=== PATIENT | male | born 1950 | race Caucasian/White ===

== ENCOUNTER 2020-01-31 18:48 | Inpatient (IN) | payer MEDICARE, OTHER ==
[~2020-01-31 18:48] MED LIST: Iopamidol 370 76% 100 ML VIAL ONE
--- NOTE | 2020-01-31 19:03 | CT ---
CT Brain WO Con History: Aphasia Comparison: None. Findings: Old right MCA territory infarction with cystic encephalomalacia of the right middle tempora l lobe, anterior temporal horn, portion of the parietal lobe. No acute hemorrhage. Expected dilatation of the right lateral ventricle. Old left VP & GENERAL COUNSEL territory infarction. No acute territorial infarct is appreciated. Calvarium is intact. Moderate volume fluid within the right mastoids. Mild Wallerian degeneration of the right middle cerebral peduncle. Impression: Old left VP & GENERAL COUNSEL and large right MCA infarctions. No acute hemorrhage or new acute territoria l infarct appreciated. Dr. Patel notified of findings via telephone at 6:59 PM
--- NOTE | 2020-01-31 19:24 | CT ---
CTA Angio Head W WO Con History: A fascia. Right-sided weakness Comparison: None. Findings: CT angiogram of the head and neck performed after the intravenous administration of contras t. 3-D rendering provided. Lung apices are relatively clear given the hypoinflated state. Transverse aorta is intact. Pulmonary trunk size is normal. Cerclage wires of the posterior elements cervical spine with laminectomy change. There is been interb mone fusion from C3-C7. The right vertebral artery is patent. The left vertebral artery is patent. The vertebral arteries are codominant. The right common carotid artery is patent. The right internal carotid artery is patent. The left common carotid artery is patent. The left internal carotid artery is patent. No hemodynamica lly significant stenosis per NASCET criteria. The anterior cerebral arteries are patent. Middle cerebral arteries are patent. Posterior cerebral ar teries are patent. The ramona of Matta is without stenosis, thrombosis nor aneurysm formation. The dural venous sinuses are patent. Hypoplastic left transverse sinus. Impression: 1. No hemodynamically significant stenosis of the internal carotid arteries per NASCET criteria. 2. The ramona of Matta is without stenosis, thrombosis nor aneurysm formation. Dr. Patel notified of findings via telephone at 7:19 PM
[2020-01-31 19:31] LABS: #Basophils 0.1 thou/uL (0.0-0.2); #Eosinphils 0.2 thou/uL (0.0-0.7); #Lymphocytes 5.2 thou/uL (1.20-3.40); #Monocytes 1.8 thou/uL (0.11-0.59); #Neutrophils 7.8 thou/uL (1.40-6.50); %Basophils 0.9 % (0.0-1.0); %Eosinophils 1.6 % (0.0-10.0); %Lymphocytes 34.6 % (21.0-51.0); %Monocytes 11.6 % (0.0-10.0); %Neutrophils 51.4 % (42.0-75.0); Hemoglobin 14.5 g/dL (14.0-18.0); Mean Corpuscular HGB CONC 33.6 g/dL (32.0-36.0); Mean Corpuscular Hemoglobin 32.8 pg (27.0-31.0); Mean Corpuscular Volume 97.7 fL (78.0-98.0); Mean Platelet Volume 8.3 fL (7.4-10.4); Platelet Count 236 thou/uL (130-400); RBC Distribution Width 13.8 % (11.5-14.5); Red Blood Cell (RBC) Count 4.41 mill/uL (4.70-6.10); White Blood Cell (WBC) Count 15.1 thou/uL (4.8-10.8)
[2020-01-31 19:33] LABS: PTT 27.8 sec (22.9-36.1); Prothrombin Time 15.2 sec (12.0-14.7)
[2020-01-31 19:34] LABS: INR-International Normal Ratio 1.2
[2020-01-31 19:46] LABS: ALT (SGPT) 20 U/L (8-55); AST (SGOT) 41 U/L (5-34); Albumin 3.6 g/dL (3.4-4.8); Alkaline Phosphatase 102 U/L (40-110); Anion Gap 19 mmol/L (10-20); BUN (Urea Nitrogen) 32 mg/dL (8.4-25.7); Bilirubin, Total 1.4 mg/dL (0.2-1.2); CK (CPK) 126 U/L (30-200); Calc. Creatinine Clearance 0 mL/min (70-130); Calcium 8.7 mg/dL (7.8-10.44); Carbon Dioxide 18 mmol/L (23-31); Chloride 99 mmol/L (98-107); Estimated GFR-MDRD 38; Globulin 4.1 g/dL (2.4-3.5); Glucose 183 mg/dL (83-110); Potassium 4.4 mmol/L (3.5-5.1); Protein, Total 7.7 g/dL (5.8-8.1); Sodium 132 mmol/L (136-145)
[2020-01-31] MEDS ORDERED: Aspirin 325 MG TAB ONE (21:49)
[2020-01-31 23:56] VITALS: BMI 30.6
[2020-02-01] MEDS: Sodium Chloride 0.9% 1,000 ML IV SCH ×2 (00:16→14:17)
[2020-02-01 01:46] LABS: Troponin I Less than 0.010 ng/mL (< 0.028)
--- NOTE | 2020-02-01 01:52 | HP ---
Of note, this patient has 2 charts. He has another chart under the medical record number of [id number]. The patient presented to the ER as a Alexandro Tenorio initially. HISTORY OF PRESENT ILLNESS: This is a -[id number] male patient who was brought to the emergency room, he was found to be aphasic with right-sided weakness. In the ER, his right-sided weakness improved, but remained aphasic and unable to provide me with much information. 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 He did undergo a stroke workup that was essentially negative. He was seen by Neurology and there was a suspicion for seizure since he does have past medical history of seizures, the patient was treated with lactulose and he was back to normal. PAST MEDICAL HISTORY: 1. High blood pressure. 2. High cholesterol. 3. Pancreatitis. 4. Seizure disorder. 5. BPH. PAST SURGICAL HISTORY: As per records: 1. Splenectomy. 2. Neck surgery. 3. Back surgery. 4. Left arm surgery. 5. Hernia repair. FAMILY HISTORY: Unable to obtain due to his confusion. SOCIAL HISTORY: As per records, he does not drink alcohol. Does not smoke. ALLERGIES: NO NOTE OF ANY DRUG ALLERGY. REVIEW OF SYSTEMS: Unable to obtain due to his confusion. PHYSICAL EXAMINATION: GENERAL: He is awake, but he knows the year, but he does not know that he is in the hospital. He does not appear in distress. VITAL SIGNS: His blood pressure is 123/86, pulse is 108, and saturating 100% on room air. HEENT: Head is nontraumatic and normocephalic. Pupils equal and reactive. Extraocular movements are intact. Nonicteric sclerae. Well injected conjunctivae. Oral mucosa normal. Nasal mucosa normal. NECK: Supple. No adenopathy. No murmur. Thyroid is not palpable. Trachea is midline. No supraclavicular lymphadenopathy. HEART: S1 and S2, regular. No murmur. No gallops. No friction rubs. LUNGS: Clear to auscultation bilaterally. No wheezes. No rhonchi. No crackles. ABDOMEN: Bowel sounds are positive. Abdomen is distended with shifting dullness. EXTREMITIES: No lower extremity edema. No cyanosis noted. NEUROLOGIC: He is moving all his four extremities, but his right upper extremity might be a bit weaker than the others. He does have expressive aphasia. Otherwise, his cranial nerves appear to be intact. LABORATORY DATA: Blood work shows a WBC of 15.1, hemoglobin 14.5, platelets of 236. Sodium 132, potassium 4.4, bicarb 18, BUN 32, creatinine 1.74, last creatinine in November 2018 was 0.82. A CTA of the head shows no stenosis. A brain CT without contrast shows old left WET MACHINE CUTTER and large right MCA infarction. No acute hemorrhage or new acute territorial infarct appreciated. ASSESSMENT AND PLAN: This is a -[id number] male patient who is presenting with what looks like aphasia and right-sided weakness, possibly due to stroke. We do have a limited information about his status. Before arriving to the ER, I did place a call to his , Blanquita Ashford and got her voicemail, so I left her a message to call me back. After reviewing his previous records, the patient did have confusion secondary to hepatic encephalopathy. On my examination, I do appreciate a protuberance of his abdomen and may be he has some ascites there. I do see evidence of caput medusa. Also, he appears to be dehydrated witnessed by the increase of the creatinine from his previous baseline. Also, he has metabolic acidosis. His symptomatology could be due to recurrence of his hepatic encephalopathy, also possible stroke. Neuro. We will admit him to a stroke unit and do an MRI of the brain as well as an echocardiogram. He will be on aspiration precautions. We will also check an ammonia level and based on the ammonia level, I might go ahead and do an ultrasound of the abdomen to rule out ascites, we will also practice permissive hypertension and he will be on aspirin. Renal system, electrolytes. The patient does have renal insufficiency secondary to most likely dehydration. We will hydrate him with IV fluids. Recheck his labs in the morning. For deep venous thrombosis prophylaxis, he will be on SCDs. He will be full code for now. I am awaiting his to call me back to obtain further information. Job ID: [id number]
[2020-02-01 05:11] LABS: Eosinophils 1 % (0-10); Hemoglobin 16.2 g/dL (14.0-18.0); Lymphocytes 22 % (21-51); MDiff Complete? YES; Macrocytosis SLIGHT = 6-15 cells (100X) (0-5/hpf); Mean Corpuscular HGB CONC 31.6 g/dL (32.0-36.0); Mean Corpuscular Hemoglobin 32.1 pg (27.0-31.0); Monocytes 8 % (0-10); Neutrophil 69 % (42-75); Platelet Count 168 thou/uL (130-400); Platelet Morphology Comment Appears Adequate; RBC Distribution Width 14.1 % (11.5-14.5); Red Blood Cell (RBC) Count 5.05 mill/uL (4.70-6.10); White Blood Cell (WBC) Count 12.8 thou/uL (4.8-10.8)
[2020-02-01 07:13] LABS: Albumin 3.3 g/dL (3.4-4.8)
[2020-02-01 07:14] LABS: Calcium 8.5 mg/dL (7.8-10.44); Chloride 104 mmol/L (98-107); Potassium 3.7 mmol/L (3.5-5.1); Sodium 137 mmol/L (136-145)
[2020-02-01 07:15] LABS: Glucose 104 mg/dL (80-115); Triglycerides 77 mg/dL (Less than 150)
[2020-02-01 07:16] LABS: Carbon Dioxide 24 mmol/L (23-31); Globulin 3.3 g/dL (2.4-3.5); Protein, Total 6.6 g/dL (5.8-8.1)
[2020-02-01 07:17] LABS: Bilirubin, Total 0.9 mg/dL (0.2-1.2)
[2020-02-01 07:18] LABS: Alkaline Phosphatase 115 U/L (40-110); Calc. Creatinine Clearance 89 mL/min (70-130); Estimated GFR-MDRD 69
[2020-02-01 07:19] LABS: BUN (Urea Nitrogen) 26 mg/dL (8.4-25.7)
[2020-02-01 07:20] LABS: AST (SGOT) 24 U/L (5-34); Cholesterol 221 mg/dl (< 200 Desired)
[2020-02-01 07:21] LABS: ALT (SGPT) 17 U/L (8-55); Cardiac Risk 3.6 (Less than 4.5); HDL Cholesterol 62 mg/dL (>60 Neg Risk); LDL Cholesterol, Calculated 144 mg/dL
[2020-02-01 07:58] LABS: Anion Gap 12 mmol/L (10-20)
--- NOTE | 2020-02-01 08:12 | ULT ---
LIMITED ABDOMINAL ULTRASOUND: HISTORY: Evaluate for ascites. COMPARISON: 09/23/2018. FINDINGS: This is a limited exam only performed to evaluate for potential ascites with evaluation of all 4 quad rants in the midline. There is no evidence for significant ascites demonstrated. Specific organs we re not evaluated. IMPRESSION: Limited study just to evaluate for ascites. No evidence for significant ascites demonstrated. POS: OFF
[2020-02-01] MEDS ORDERED: Aspirin 325 mg Enteric Coated Tablet PO SCH (09:00)
[2020-02-01] MEDS ORDERED: Enoxaparin Sodium 40 MG/0.4 ML SYRINGE SC SCH (09:00)
[2020-02-01] MEDS ORDERED: Magnevist 469MG/ML 20 ML VIAL ONE (10:30)
--- NOTE | 2020-02-01 10:51 | MRI ---
BRAIN MRI WITHOUT IV CONTRAST: COMPARISON: Brain CT 01/31/2020, prior brain MRI 11/21/2018. FINDINGS: There is bilateral atrophy and chronic white matter ischemic change. There is extensive old right-si ded frontal temporal encephalomalacia with some associated brain volume loss. There is also some min imal encephalomalacia in the left occipital lobe. There is evidence for acute left middle cerebral a rtery distribution infarct changes involving the posterior aspect of the left middle cerebral artery distribution with some focal mass effect as well as some patchy petechial hemorrhagic changes with so me focal mass effect. No evidence for extraaxial hemorrhage or significant intraparenchymal hematoma . IMPRESSION: Evidence for new patchy infarct changes in the region of the left posterior middle cerebral artery di stribution with some associated fairly marked petechial hemorrhagic changes and some focal mass effec t without evidence for acute extraaxial hemorrhage or intracerebral hematoma. POS: OFF
--- NOTE | 2020-02-01 11:39 | CON ---
DATE OF CONSULTATION: 02/01/2020 CONSULTING PHYSICIAN: Hospitalist Services. IMPRESSION: 1. Probable seizure with transient amnesia. 2. 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 3. Prior history of right parietal and occipital strokes. 4. High blood pressure. 5. Hyperlipidemia. PLAN: 1. MRI with contrast. 2. Neurosurgical opinion. HISTORY OF PRESENT ILLNESS: Mr. Ashford is a 69-year-old gentleman with a past history of the above-noted issues. He was in his car when he began to feel strangely. He lost a piece of time, a friend helped him out of his car sometime later. He did not have a headache, nausea, vomiting, dizziness, lateralized weakness, or numbness that he can recall. He was brought to the ER with presumed right-sided weakness and inability to speak. He does not recall any of the symptoms at this point. He has a past history of transient confusion, which was attributed to hepatic encephalopathy. He reportedly has an autoimmune hepatitis. He had an MRI of the brain done, which showed a large irregular mass in the left posteroparietal region. There is encephalomalacia in the right parietal region and some occipitally as well. His laboratory studies showed a slightly elevated white count of 15.1. Coags were normal range, and chemistry panel was unremarkable, and cholesterol ratio was 3.6. PAST MEDICAL HISTORY: As listed above. ALLERGIES: NONE REPORTED. SOCIAL HISTORY: Unremarkable. FAMILY HISTORY: Unremarkable. REVIEW OF SYSTEMS: Ten-system review of systems is otherwise negative. PHYSICAL EXAMINATION: VITAL SIGNS: Blood pressure 156/89, pulse 94, respirations 20, and temperature 97.6. HEENT: Pupils equal and reactive. Conjunctivae clear. Oropharynx clear. NECK: Supple. No lymphadenopathy. CHEST: Clear. ABDOMEN: Soft and nontender. SKIN: Clear. EXTREMITIES: No cyanosis or edema. NEUROLOGIC: He was alert and oriented. His speech is fluent and clear. There is no facial asymmetry present. He had a good knowledge management consultant strength bilaterally. There is no fix or drift. Sensation was subjectively decreased to light touch in the right lower face and right arm. He could walk independently, no abnormal movements were seen. SUMMARY: A 69-year-old man who presents with a left posteroparietal mass and a probable seizure. I would need contrast imaging and probably neurosurgical opinion to weigh in on a biopsy. Job ID: [id number]
--- NOTE | 2020-02-01 11:57 | PDOC.HOSPP ---
- Subjective Encounter Date: 02/01/20 Encounter Time: 09:40 Subjective: Patient is alert oriented x3 now. He says that he takes bunch of medicine but he does not remember anything. Admitted with hepatic encephalopathy abdominal ultrasound does not show significant ascites. I do not see any home medications starting him on Lasix and spironolactone as well as lactulose. White count is trending down. He has no significant weakness in his extremities which I have examined. Patient lives alone. Does not drink alcohol. - Objective Vital Signs & Weight: Vital Signs (12 hours) Temp Pulse Resp BP Pulse Ox 02/01/20 11:26 98.5 F 89 20 160/92 H 94 L 02/01/20 07:23 97.6 F 94 20 156/89 H 93 L 02/01/20 04:45 97.9 F 96 18 129/88 95 Weight Weight 213 lb 8 oz Result Diagrams: 02/01/20 04:45 02/01/20 06:39 Additional Labs: Accuchecks 01/31/20 18:58 POC Glucose 203 H Hospitalist ROS - Medication Medications: Active Medications Generic Name Dose Route Start Last Admin Trade Name Freq PRN Reason Stop Dose Admin Aspirin 325 mg 02/01/20 09:00 02/01/20 10:47 Aspirin 325 Mg Enteric Coated Tablet PO 325 mg DAILY GEETA Administration Sodium Chloride 1,000 mls @ 75 mls/hr 01/31/20 22:30 02/01/20 00:16 Normal Saline 0.9% IV 1,000 mls .[id number] GEETA Administration - Exam General Appearance: NAD, awake alert Eye: PERRL ENT: normocephalic atraumatic Neck: supple Heart: RRR Respiratory: CTAB, normal chest expansion Gastrointestinal: soft, normal bowel sounds, no palpable masses, no splenomegaly, no guarding, no rigidity Neurological: no new deficit Psychiatric: A&O x 3 Hosp A/P - Plan Right side weakness and a phasic present on admission which seems to be resolved as I do not appreciate any weakness on his right upper extremity as well as lower extremity. -Prior admission in October and November for similar come concerns and he completed a stroke work-up at that time as well. History of right parietal and occipital stroke Probable seizure with a transient amnesia prior to current admission - MR new patchy infarct in the left posterior middle cerebral artery distribution and a fairly marketed petechial hemorrhage -suggestive of left posterior parietal mass -No evidence of extra axial hemorrhage or intracerebral hematoma -Neurosurgery consult pending -He is not on any seizure medications from his last hospitalization. -Ativan PRN for seizure Hypertension --It does not appear that his home medications are updated. Will start him low- dose lisinopril and hydralazine as needed. - -Echo pending. -PT OT consult placed.
[2020-02-01] MEDS ORDERED: hydrALAZINE 20 MG/ML VIAL SLOW IVP PRN (12:03)
[2020-02-01] MEDS ORDERED: Lorazepam 2 MG/ML VIAL SLOW IVP PRN (12:04)
[2020-02-01 12:27] LABS: SARS-CoV-2 MS2 Positive; SARS-CoV-2 N Gene Negative; SARS-CoV-2 S Gene Negative; SARS-CoV-2 by NAA Not Detected (NotDetected); SARS-CoV-2 orf1ab Negative
--- NOTE | 2020-02-01 12:45 | MRI ---
BRAIN MRI WITH IV CONTRAST: HISTORY: Followup brain MRI without IV contrast dated 02/01/2020. HISTORY: History is that of infarct. Brain mass. COMPARISON: Noncontrast brain MRI, 02/01/2020, brain CT without contrast, 01/31/2020. FINDINGS: There is some minimal edematous change in the posterior left parietal lobe with some dilated vessels, evidence for luxury perfusion with associated evolving hemorrhagic infarct. No evidence for neoplas tic mass. IMPRESSION: Findings for evolving posterior left middle cerebral artery distribution infarct with associated luxu ry perfusion. POS: OFF
[2020-02-01] MEDS ORDERED: Labetalol HCl 100 MG/20 ML VIAL SLOW IVP PRN (14:32)
[2020-02-01] MEDS ORDERED: cloNIDine 0.1 MG TAB PO PRN (17:02)
--- NOTE | 2020-02-01 18:10 | CON ---
DATE OF CONSULTATION: 02/01/2020 HISTORY OF PRESENT ILLNESS: The patient is a 69-year-old male, who presented to the emergency department from [place] for sudden onset of right-sided weakness and aphasia. On arrival, he was evaluated with a noncontrast CT head as well as a CTA. CT head was notable for an old left FORESTRY SUPPORT SPECIALIST infarct as well as a large right MCA old infarct. There was no acute hemorrhage seen. CTA was also performed which was negative for vascular malformation. The patient was admitted to the Medicine Service for stroke workup as well as possible underlying seizure event. Neurology was consulted, who also visit with the patient. MRI was performed without contrast and Neurology was concerned for possible left parietal mass. Further MRI was done with contrast studies. This appears more consistent with a left MCA infarct with some hemorrhagic conversion. Neurosurgery was consulted for additional management. The patient had received aspirin and is currently on 81 mg daily. I visited with the patient at the bedside. He is currently awake and alert, able to tell me his name and his location. He is not oriented to time. He is moving all 4s without difficulty, but is notable to have some subtle weakness in the right hand. He has some intermittent confusion. I am not sure of his baseline status or possible underlying dementia. PAST MEDICAL HISTORY: Hypertension, hyperlipidemia, pancreatitis, seizure disorder, BPH. PAST SURGICAL HISTORY: Splenectomy, cervical surgery, back surgery, left arm surgery, hernia repair. FAMILY HISTORY: Noncontributory. SOCIAL HISTORY: Lives at [place]. He does not smoke, drink, or use of any drugs. ALLERGIES: HE HAS NO KNOWN DRUG ALLERGIES. REVIEW OF SYSTEMS: Limited due to patient's confusion. PHYSICAL EXAMINATION: VITAL SIGNS: Stable. Blood pressure is currently 160/92. HEENT: Head, normocephalic and atraumatic. Eyes, PERRLA. Extraocular movements intact. ENT: [place], intact, moist. CARDIAC: Regular rate and rhythm. PULMONARY: Symmetric chest expansion. No evidence of dyspnea. MUSCULOSKELETAL: He has free active range of motion in all extremities. He has some subtle weakness in the right offset press operator. NEURO: A and O x4. Subtle weakness in the right upper extremity particularly in the offset press operator. ASSESSMENT AND PLAN: This is a 69-year-old male, who recently had an event of acute right-sided weakness and a seizure, which is improved significantly since onset. He appears to have suffered a left MCA infarct with some hemorrhagic conversion. I have stopped his aspirin and we will plan to repeat a noncontrast CT head in the morning. I have discussed the case with Dr. Kendall, who is in agreement. We will follow along closely. Job ID: [id number]
[2020-02-01] MEDS: Atorvastatin Calcium 20 MG TAB PO SCH (20:42)
--- NOTE | 2020-02-02 07:05 | CT ---
PRELIMINARY REPORT/[facility]/EMERGENCY AFTER HOURS PROCEDURE: Addendum: The comparison was made with prior examination 02/01/2020.Addendum electronically signed by Gomez Castellanos MD on February 02, 2020 4:22:51 AM CDT This report was discussed with Alexandro Serrano RN by Yessica Tinoco on Feb 02, 2020 04:16:00 CDT.Ad dendum electronically signed by Yessica Tinoco on February 02, 2020 4:18:58 AM CDT EXAM: CT Head Without Intravenous Contrast. CLINICAL HISTORY: F/u left MCA infarct with hem conversion TECHNIQUE: Axial computed tomography images of the head/brain without intravenous contrast. COMPARISON: None provided. FINDINGS: BRAIN: There is an acute intraparenchymal hematoma in the left parietal lobe measuring about 2.7 x 2. 8 x 3.5 cm with vasogenic edema, new since the last examination. There is an old infarct in the right episcopal and the frontal lobe. There is a mild midline shift to the right side for about 4 mm, new since the last examination. VENTRICLES: There is a mild effacement of the left lateral ventricle, new since the last examination. ORBITS: The orbits are unremarkable. SINUSES AND MASTOIDS: The paranasal sinuses and mastoid air cells are clear. SOFT TISSUES: No significant facial or scalp soft tissue swelling evident. No radiopaque foreign body is seen. BONES: No acute skull fracture. IMPRESSION: 1. There is an acute intraparenchymal hematoma in the left parietal lobe measuring about 2.7 x 2.8 x 3.5 cm with vasogenic edema, new since the last examination. 2. There is an old infarct in the right episcopal and the frontal lobe. 3. There is a mild effacement of the left lateral ventricle, new since the last examination. 4. There is a mild midline shift to the right side for about 4 mm, new since the last examination. ELECTRONICALLY SIGNED BY: Gomez Castellanos MD Feb 02, 2020 4:07:16 AM CDT FINAL REPORT HEAD CT WITHOUT CONTRAST: HISTORY: Left MCA infarct with hemorrhagic conversion. Follow-up scan. COMPARISON: 01/31/2020. FINDINGS: Hemorrhage: 2.7 x 2.5 cm hemorrhage centered in the left parietal lobe. Brain parenchyma: Loss of bass-white matter differentiation the left MCA distribution.Previous enceph alomalacia and gliosis involving the right MCA distribution. Chronic small vessel ischemic changes. There is mild right to left subfalcine herniation. Ventricular system: Possible intraventricular hemorrhage in the temporal horn of the left ventricle. Calvarium: Intact. Sinuses and mastoid air cells: Adequate aeration. IMPRESSION: 1. This report is in agreement with initial report by [facility]. 2. Acute intraparenchymal hemorrhage involving the left parietal lobe with associated vasogenic edema . Transcribed Date/Time: 02/02/2020 7:45 AM
--- NOTE | 2020-02-02 07:53 | PRG ---
DATE OF SERVICE: 02/02/2020 The patient is a 69-year-old male with history of prior right-sided infarcts, who was admitted with a seizure. His imaging had ultimately suggested a left parietal infarction with hemorrhagic conversion. He was on aspirin and Lovenox. This morning, the patient had some notable deterioration in his exam. CT scan reveals some progression of hemorrhagic conversion. IMPRESSION AND PLAN: Left parietal stroke with hemorrhagic conversion. The etiology is unclear and we will defer to Neurology regarding ongoing stroke workup. I do note that his CTA was negative. No plans for neurosurgical intervention at this time. His deficit relates to the location of the infarct and hemorrhage and some surrounding edema. I expect his recovery will be protracted. No specific neurosurgical recommendations at this time. Job ID: [id number]
[2020-02-02] MEDS ORDERED: Spironolactone 25 MG TAB PO SCH (08:00)
[2020-02-02] MEDS ORDERED: Furosemide 20 MG TAB PO SCH (09:00)
[2020-02-02] MEDS ORDERED: Aspirin 81 mg Enteric Coated Tablet PO SCH (09:00)
[2020-02-02] MEDS: Lisinopril 20 MG TAB PO SCH ×2 (10:58→11:02)
--- NOTE | 2020-02-02 12:02 | PDOC.HOSPP ---
- Subjective Encounter Date: 02/02/20 Encounter Time: 08:20 Subjective: Patient is getting electroencephalogram. Quite fatigued and somnolent. Mentation is not good today. It was better yesterday. He has vasogenic edema on the repeat CT head today with acute intraparenchymal hemorrhage involving the left parietal lobe. No neurosurgical intervention. I am starting him on Decadron for vasogenic edema. - Objective Vital Signs & Weight: Vital Signs (12 hours) Temp Pulse Resp BP BP Pulse Ox 02/02/20 11:02 129/66 02/02/20 07:29 98.3 F 94 18 129/66 94 L 02/02/20 04:07 101 F H 93 22 H 130/63 98 Weight Weight 213 lb 8 oz Result Diagrams: 02/01/20 04:45 02/01/20 06:39 Hospitalist ROS - Medication Medications: Active Medications Generic Name Dose Route Start Last Admin Trade Name Freq PRN Reason Stop Dose Admin Atorvastatin Calcium 20 mg 02/01/20 21:00 02/01/20 20:42 Atorvastatin Calcium 20 Mg Tab PO 20 mg HS GEETA Administration Clonidine 0.1 mg 02/01/20 17:02 02/01/20 17:14 Clonidine 0.1 Mg Tab PO 0.1 mg Q8H PRN Administration SBP >150 Lactulose 10 gm 02/02/20 09:00 02/02/20 10:59 Lactulose 20 Gm/30 Ml Udcup PO 10 gm DAILY GEETA Administration Lisinopril 20 mg 02/02/20 09:00 02/02/20 11:02 Lisinopril 20 Mg Tab PO Not Given DAILY GEETA Sodium Chloride 10 ml 01/31/20 22:30 02/01/20 20:42 Flush - Normal Saline 10 Ml Syringe IVF 10 ml PRN PRN Administration Saline Flush - Exam General Appearance: NAD, awake alert, ill appearing Eye: PERRL Neck: supple Heart: RRR Respiratory: CTAB, normal chest expansion Gastrointestinal: soft, no bruit Musculoskeletal: generalized weakness Psychiatric: not oriented, somnolent, lethargic Hosp A/P - Plan Right side weakness and a phasic present on admission which seems to be resolved as I do not appreciate any weakness on his right upper extremity as well as lower extremity. -Prior admission in October and November for similar come concerns and he completed a stroke work-up at that time as well. History of right parietal and occipital stroke Probable seizure with a transient amnesia prior to current admission - MR new patchy infarct in the left posterior middle cerebral artery distribution and a fairly marketed petechial hemorrhage -suggestive of left posterior parietal mass -No evidence of extra axial hemorrhage or intracerebral hematoma -Neurosurgery consult pending -He is not on any seizure medications from his last hospitalization. -Ativan PRN for seizure Hypertension --It does not appear that his home medications are updated. Will start him low- dose lisinopril and hydralazine as needed. - -Echo ---------------> EF of 55%. Diastolic dysfunction. Moderately dilated left atrium. Mild tricuspid regurgitation. -PT OT consult placed. 21st Intraparenchymal hemorrhage Vasogenic edema He has vasogenic edema on the repeat CT head today with acute intraparenchymal hemorrhage involving the left parietal lobe. No neurosurgical intervention. I am starting him on Decadron for vasogenic edema. --Blood pressure control to keep the systolic below 140. -He is on lisinopril. However with his mentation he may not be able to take that. I will schedule IV blood pressure medication. DC the p.o. for now once mentation is improved then will start him back on p.o. blood pressure medication. -Aloe up with electroencephalogram report. DC Lovenox for DVT prophylaxis and aspirin. He has he is clinical progression and improvement is not immediately favorable and she is full code will consult to the palliative to help with family interactions and code reevaluation.
[2020-02-02] MEDS: Dexamethasone 4 mg/ml Vial SLOW IVP SCH ×2 (12:10→17:22)
[2020-02-02] MEDS: Labetalol HCl 100 MG/20 ML VIAL SLOW IVP PRN ×2 (12:11→13:23)
[2020-02-02] MEDS: Metoprolol Tartrate 5 MG/5 ML VIAL IVP SCH ×3 (12:18→21:33)
--- NOTE | 2020-02-02 14:51 | PDOC.NEUPN ---
- Subjective Encounter Date: 02/02/20 Subjective: Patient seems to be confused and lethargic. - Objective Vital Signs & Weight: Vital Signs (12 hours) Temp Pulse Pulse Resp BP BP BP 02/02/20 13:23 73 157/91 H 02/02/20 12:23 76 157/97 H 02/02/20 12:00 98.2 F 84 17 149/80 H 02/02/20 11:02 129/66 02/02/20 07:29 98.3 F 94 18 129/66 02/02/20 04:07 101 F H 93 22 H 130/63 Pulse Ox 02/02/20 13:23 02/02/20 12:23 02/02/20 12:00 95 02/02/20 11:02 02/02/20 07:29 94 L 02/02/20 04:07 98 Weight Admit Weight 213 lb 8 oz Weight 213 lb 8 oz Result Diagrams: 02/01/20 04:45 02/01/20 06:39 Radiology Reviewed by me: Yes EKG Reviewed by me: Yes ROS - Review of Systems ROS unobtainable: due to mental status - Medication Medications: Active Medications Generic Name Dose Route Start Last Admin Trade Name Freq PRN Reason Stop Dose Admin Atorvastatin Calcium 20 mg 02/01/20 21:00 02/01/20 20:42 Atorvastatin Calcium 20 Mg Tab PO 20 mg HS GEETA Administration Clonidine 0.1 mg 02/01/20 17:02 02/01/20 17:14 Clonidine 0.1 Mg Tab PO 0.1 mg Q8H PRN Administration SBP >150 Dexamethasone 4 mg 02/02/20 12:00 02/02/20 12:10 Dexamethasone 4 Mg/Ml Vial SLOW IVP 4 mg Q6HR GEETA Administration Labetalol HCl 10 mg 02/01/20 17:01 02/02/20 13:23 Labetalol Hcl 100 Mg/20 Ml Vial SLOW IVP 10 mg Q4H PRN Administration SBP > 140 Metoprolol Tartrate 5 mg 02/02/20 12:00 02/02/20 12:18 Metoprolol Tartrate 5 Mg/5 Ml Vial IVP 5 mg Q6HR GEETA Administration Sodium Chloride 10 ml 01/31/20 22:30 02/01/20 20:42 Flush - Normal Saline 10 Ml Syringe IVF 10 ml PRN PRN Administration Saline Flush - Exam General Appearance: ill appearing Eye: PERRL ENT: normocephalic atraumatic Neck: supple Respiratory: CTAB Cardiovascular: RRR Gastrointestinal: soft Extremities: no cyanosis Skin: normal turgor Neurological: no new deficit PSYCH: not oriented, lethargic Results - Labs Result Diagrams: 02/01/20 04:45 02/01/20 06:39 Lab results: WBC 12.8 thou/uL (4.8-10.8) H 02/01/20 04:45 Hgb 16.2 g/dL (14.0-18.0) 02/01/20 04:45 Hct 51.2 % (42.0-52.0) 02/01/20 04:45 MCV 101.0 fL (78.0-98.0) H 02/01/20 04:45 Plt Count 168 thou/uL (130-400) 02/01/20 04:45 Neutrophils % 51.4 % (42.0-75.0) 01/31/20 19:00 Sodium 137 mmol/L (136-145) 02/01/20 06:39 Potassium 3.7 mmol/L (3.5-5.1) 02/01/20 06:39 Chloride 104 mmol/L (98-107) 02/01/20 06:39 Carbon Dioxide 24 mmol/L (23-31) 02/01/20 06:39 BUN 26 mg/dL (8.4-25.7) H 02/01/20 06:39 Creatinine 1.06 mg/dL (0.7-1.3) 02/01/20 06:39 Glucose 104 mg/dL (80-115) 02/01/20 06:39 Calcium 8.5 mg/dL (7.8-10.44) 02/01/20 06:39 Total Bilirubin 0.9 mg/dL (0.2-1.2) 02/01/20 06:39 AST 24 U/L (5-34) 02/01/20 06:39 ALT 17 U/L (8-55) 02/01/20 06:39 Alkaline Phosphatase 115 U/L (40-110) H 02/01/20 06:39 Ammonia 60 umol/L (18-72) 01/31/20 22:55 Creatine Kinase 126 U/L (30-200) 01/31/20 19:00 Troponin I Less than 0.010 ng/mL (< 0.028) 02/01/20 01:09 Serum Total Protein 6.6 g/dL (5.8-8.1) 02/01/20 06:39 Albumin 3.3 g/dL (3.4-4.8) L 02/01/20 06:39 - Radiology Interpretation MRI - head Additional Comment: MRI Brain new patchy infarct in the left posterior middle cerebral artery distribution with hemorrhage PN A/P (1) CVA (cerebral vascular accident) Code(s): I63.9 - CEREBRAL INFARCTION, UNSPECIFIED Status: Acute (2) Cerebral hemorrhage Code(s): I61.9 - NONTRAUMATIC INTRACEREBRAL HEMORRHAGE, UNSPECIFIED Status: Acute - Plan Daily Plan: PT/OT, speech therapy, DVT proph w/SCDs Mr Ashford has history of right parietal and occipital stroke presented with possible seizure like activity. EEG reviewed which was negative for seizure activity. MRI brain reviewed which showed patchy infarct in the left posterior middle cerebral artery distribution and a fairly IP hemorrhage with vasogenic edema. No intervention per NSGY. Continue decadron. Neurochecks every 2 hours. Start Keppra 500 mg bid for seizure prophylaxis. 2D echo showed LVEF of 55%. Diastolic dysfunction. . Strict control of BP Telemetry Continue home medications Continue medical management per primary team PT/OT/Speech Case discussed during MDR rounds
[2020-02-02] MEDS ORDERED: cloNIDine 0.2mg/24 Hour PATCH TD SCH (16:00)
[2020-02-02] MEDS: Lorazepam 2 MG/ML VIAL SLOW IVP PRN (18:10)
[2020-02-02] MEDS: Atorvastatin Calcium 20 MG TAB PO SCH (21:32)
[2020-02-03] MEDS: Dexamethasone 4 mg/ml Vial SLOW IVP SCH ×4 (00:34→18:07)
[2020-02-03] MEDS: Metoprolol Tartrate 5 MG/5 ML VIAL IVP SCH ×6 (00:35→21:46)
[2020-02-03] MEDS: Lorazepam 2 MG/ML VIAL SLOW IVP PRN ×3 (08:58→23:42)
--- NOTE | 2020-02-03 08:58 | EEG ---
DATE OF SERVICE: 02/02/2020 ATTENDING PHYSICIAN: Ivon Saeed MD This EEG was performed using 24-channel [employer] video digital EEG machine with 24-disk electrodes. This was an extended 2 hours 6 minutes of inpatient video EEG recording. Digital analysis of the EEG was done for spike and seizure detection which revealed no abnormalities. BACKGROUND: Posterior background rhythm was not observed. HYPERVENTILATION: Not performed. PHOTIC STIMULATION: Not performed. SLEEP: No stage change was observed. EEG DIAGNOSES: 1. Generalized irregular delta-theta activity seen throughout the recording. 2. Absence of posterior background rhythm. CLINICAL INTERPRETATION: This EEG is consistent with [id number] generalized nonspecific cerebral dysfunction. Job ID: [id number]
--- NOTE | 2020-02-03 10:10 | PRG ---
DATE OF SERVICE: 02/03/2020 SUBJECTIVE: I visited with the patient on the Stroke Unit. He continues to be quite confused and aphasic from his left parietal infarct and hemorrhagic conversion. No additional overnight events. His neurologic exam is very similar to yesterday. He is very confused and significantly aphasic. He has seen spontaneously moving all fours and will attempt to get out of bed at times. There continues to be no plans for neurosurgical intervention at this time. We will defer ongoing management to Neurology and medical teams. Job ID: [id number]
--- NOTE | 2020-02-03 12:03 | PDOC.HOSPP ---
- Subjective Encounter Date: 02/03/20 Encounter Time: 09:50 Subjective: Patient is still lethargic but more aware of his surroundings. He is quite a phasic still. I consulted palliative to look at his home situations. I do not see any family members listed for contact. He is full code. His CODE STATUS has to be addressed. - Objective Vital Signs & Weight: Vital Signs (12 hours) Temp Pulse Resp BP Pulse Ox 02/03/20 07:26 98 F 76 18 136/77 93 L 02/03/20 05:45 59 L 129/71 02/03/20 05:39 68 131/76 02/03/20 05:35 74 151/81 H 02/03/20 04:20 98.6 F 74 20 152/85 H 95 02/03/20 00:40 65 127/63 02/03/20 00:39 68 141/71 H 02/03/20 00:30 71 132/70 Weight Admit Weight 213 lb 8 oz Weight 213 lb 8 oz I&O: 02/02/20 02/03/20 02/04/20 06:59 06:59 06:59 Intake Total 540 Balance 540 Result Diagrams: 02/01/20 04:45 02/01/20 06:39 Hospitalist ROS - Medication Medications: Active Medications Generic Name Dose Route Start Last Admin Trade Name Freq PRN Reason Stop Dose Admin Atorvastatin Calcium 20 mg 02/01/20 21:00 02/02/20 21:32 Atorvastatin Calcium 20 Mg Tab PO Not Given HS GEETA Clonidine 0.1 mg 02/01/20 17:02 02/01/20 17:14 Clonidine 0.1 Mg Tab PO 0.1 mg Q8H PRN Administration SBP >150 Clonidine 0.2 mg 02/02/20 16:00 02/02/20 15:28 Clonidine 0.2mg/24 Hour Patch TD 0.2 mg Q7D GEETA Administration Dexamethasone 4 mg 02/02/20 12:00 02/03/20 05:36 Dexamethasone 4 Mg/Ml Vial SLOW IVP 4 mg Q6HR GEETA Administration Labetalol HCl 10 mg 02/01/20 17:01 02/02/20 13:23 Labetalol Hcl 100 Mg/20 Ml Vial SLOW IVP 10 mg Q4H PRN Administration SBP > 140 Lorazepam 1 mg 02/02/20 17:42 02/03/20 08:58 Lorazepam 2 Mg/Ml Vial SLOW IVP 1 mg Q6H PRN Administration .AGITATION Metoprolol Tartrate 5 mg 02/02/20 21:00 02/03/20 08:48 Metoprolol Tartrate 5 Mg/5 Ml Vial IVP 5 mg Q4HR GEETA Administration Sodium Chloride 10 ml 01/31/20 22:30 02/01/20 20:42 Flush - Normal Saline 10 Ml Syringe IVF 10 ml PRN PRN Administration Saline Flush - Exam General Appearance: ill appearing General - other findings: Expressive aphasia Eye: PERRL ENT: normocephalic atraumatic Neck: supple Heart: RRR Respiratory: CTAB, normal chest expansion Gastrointestinal: soft, normal bowel sounds Neurological: no new deficit, speech deficit Psychiatric: oriented to person Hosp A/P - Plan Right side weakness and a phasic present on admission which seems to be resolved as I do not appreciate any weakness on his right upper extremity as well as lower extremity. -Prior admission in October and November for similar come concerns and he completed a stroke work-up at that time as well. History of right parietal and occipital stroke Probable seizure with a transient amnesia prior to current admission - MR new patchy infarct in the left posterior middle cerebral artery distribution and a fairly marketed petechial hemorrhage -suggestive of left posterior parietal mass -No evidence of extra axial hemorrhage or intracerebral hematoma -Neurosurgery consult pending -He is not on any seizure medications from his last hospitalization. -Ativan PRN for seizure Hypertension --It does not appear that his home medications are updated. Will start him low- dose lisinopril and hydralazine as needed. - -Echo ---------------> EF of 55%. Diastolic dysfunction. Moderately dilated left atrium. Mild tricuspid regurgitation. -PT OT consult placed. Intraparenchymal hemorrhage Vasogenic edema He has vasogenic edema on the repeat CT head today with acute intraparenchymal hemorrhage involving the left parietal lobe. No neurosurgical intervention. I am starting him on Decadron for vasogenic edema. --Blood pressure control to keep the systolic below 140. -He is on lisinopril. However with his mentation he may not be able to take that. I will schedule IV blood pressure medication. DC the p.o. for now once mentation is improved then will start him back on p.o. blood pressure medication. -Aloe up with electroencephalogram report. DC Lovenox for DVT prophylaxis and aspirin. He has he is clinical progression and improvement is not immediately favorable and she is full code will consult to the palliative to help with family interactions and code reevaluation. 22nd -We will repeat the CT head in 1 week or earlier if any changes in his neurological status. -Have to really assess the vasogenic edema as he is on Decadron currently. -Electroencephalogram shows moderate to severe generalized nonspecific cerebral dysfunction. -PT OT on board. -We will see next 1 to 2 days if there is any neurological improvement. -He would be a candidate for rehab versus [facility] facility placement at this point.
--- NOTE | 2020-02-03 13:04 | PDOC.NEUPN ---
- Subjective Encounter Date: 02/03/20 Subjective: Patient continues to be aphasic and agitated this morning. EEG negative for seizure activity. - Objective Vital Signs & Weight: Vital Signs (12 hours) Temp Pulse Resp BP Pulse Ox 02/03/20 12:00 98.2 F 74 20 142/81 H 92 L 02/03/20 07:26 98 F 76 18 136/77 93 L 02/03/20 05:45 59 L 129/71 02/03/20 05:39 68 131/76 02/03/20 05:35 74 151/81 H 02/03/20 04:20 98.6 F 74 20 152/85 H 95 Weight Admit Weight 213 lb 8 oz Weight 213 lb 8 oz I&O: 02/02/20 02/03/20 02/04/20 06:59 06:59 06:59 Intake Total 540 Balance 540 Result Diagrams: 02/01/20 04:45 02/01/20 06:39 Radiology Reviewed by me: Yes EKG Reviewed by me: Yes ROS - Review of Systems ROS unobtainable: due to mental status (aphasic) - Medication Medications: Active Medications Generic Name Dose Route Start Last Admin Trade Name Freq PRN Reason Stop Dose Admin Atorvastatin Calcium 20 mg 02/01/20 21:00 02/02/20 21:32 Atorvastatin Calcium 20 Mg Tab PO Not Given HS GEETA Clonidine 0.1 mg 02/01/20 17:02 02/01/20 17:14 Clonidine 0.1 Mg Tab PO 0.1 mg Q8H PRN Administration SBP >150 Clonidine 0.2 mg 02/02/20 16:00 02/02/20 15:28 Clonidine 0.2mg/24 Hour Patch TD 0.2 mg Q7D GEETA Administration Dexamethasone 4 mg 02/02/20 12:00 02/03/20 12:17 Dexamethasone 4 Mg/Ml Vial SLOW IVP 4 mg Q6HR GEETA Administration Labetalol HCl 10 mg 02/01/20 17:01 02/02/20 13:23 Labetalol Hcl 100 Mg/20 Ml Vial SLOW IVP 10 mg Q4H PRN Administration SBP > 140 Lorazepam 1 mg 02/02/20 17:42 02/03/20 08:58 Lorazepam 2 Mg/Ml Vial SLOW IVP 1 mg Q6H PRN Administration .AGITATION Metoprolol Tartrate 5 mg 02/02/20 21:00 02/03/20 12:17 Metoprolol Tartrate 5 Mg/5 Ml Vial IVP 5 mg Q4HR GEETA Administration Sodium Chloride 10 ml 01/31/20 22:30 02/01/20 20:42 Flush - Normal Saline 10 Ml Syringe IVF 10 ml PRN PRN Administration Saline Flush - Exam General Appearance: awake alert Eye: PERRL ENT: normocephalic atraumatic Neck: supple Respiratory: CTAB Cardiovascular: RRR Gastrointestinal: soft Extremities: no cyanosis Skin: normal turgor Neurological: no new deficit, speech deficit Musculoskeletal: no muscle wasting PSYCH: not oriented (aphasic) Results - Labs Result Diagrams: 02/01/20 04:45 02/01/20 06:39 Lab results: WBC 12.8 thou/uL (4.8-10.8) H 02/01/20 04:45 Hgb 16.2 g/dL (14.0-18.0) 02/01/20 04:45 Hct 51.2 % (42.0-52.0) 02/01/20 04:45 MCV 101.0 fL (78.0-98.0) H 02/01/20 04:45 Plt Count 168 thou/uL (130-400) 02/01/20 04:45 Neutrophils % 51.4 % (42.0-75.0) 01/31/20 19:00 Sodium 137 mmol/L (136-145) 02/01/20 06:39 Potassium 3.7 mmol/L (3.5-5.1) 02/01/20 06:39 Chloride 104 mmol/L (98-107) 02/01/20 06:39 Carbon Dioxide 24 mmol/L (23-31) 02/01/20 06:39 BUN 26 mg/dL (8.4-25.7) H 02/01/20 06:39 Creatinine 1.06 mg/dL (0.7-1.3) 02/01/20 06:39 Glucose 104 mg/dL (80-115) 02/01/20 06:39 Calcium 8.5 mg/dL (7.8-10.44) 02/01/20 06:39 Total Bilirubin 0.9 mg/dL (0.2-1.2) 02/01/20 06:39 AST 24 U/L (5-34) 02/01/20 06:39 ALT 17 U/L (8-55) 02/01/20 06:39 Alkaline Phosphatase 115 U/L (40-110) H 02/01/20 06:39 Ammonia 60 umol/L (18-72) 01/31/20 22:55 Creatine Kinase 126 U/L (30-200) 01/31/20 19:00 Troponin I Less than 0.010 ng/mL (< 0.028) 02/01/20 01:09 Serum Total Protein 6.6 g/dL (5.8-8.1) 02/01/20 06:39 Albumin 3.3 g/dL (3.4-4.8) L 02/01/20 06:39 PN A/P (1) CVA (cerebral vascular accident) Code(s): I63.9 - CEREBRAL INFARCTION, UNSPECIFIED Status: Acute (2) Cerebral hemorrhage Code(s): I61.9 - NONTRAUMATIC INTRACEREBRAL HEMORRHAGE, UNSPECIFIED Status: Acute - Plan Daily Plan: PT/OT, speech therapy, DVT proph w/SCDs Mr Ashford has history of right parietal and occipital stroke presented with possible seizure like activity. EEG reviewed which was negative for seizure activity. MRI brain reviewed which showed patchy infarct in the left posterior middle cerebral artery distribution and a fairly IP hemorrhage with vasogenic edema. No intervention per NSGY. Continue decadron. Neurochecks every 2 hours. Continue Keppra 500 mg bid for seizure prophylaxis.- ordered. 2D echo showed LVEF of 55%. Diastolic dysfunction. No thrombus or PFO. . Strict control of BP and GBG Telemetry Continue home medications Continue medical management per primary team PT/OT/Speech CM on board regarding discharge planning. Case discussed during MDR rounds
--- NOTE | 2020-02-03 17:06 | PDOC.FMACP ---
Advance Care Planning - Problem (1) Palliative care encounter Status: Acute Code(s): Z51.5 - ENCOUNTER FOR PALLIATIVE CARE (2) CVA (cerebral vascular accident) Status: Acute Code(s): I63.9 - CEREBRAL INFARCTION, UNSPECIFIED (3) Cerebral hemorrhage Status: Acute Code(s): I61.9 - NONTRAUMATIC INTRACEREBRAL HEMORRHAGE, UNSPECIFIED - Note Participants: surrogate decision-maker, palliative care Summary: Revisited Advanced Care Planning with Blanquita Ashford. She is determined as surrogate decision maker as she remains legally to Mr Ashford, and he has no designated MPOA. The diagnosis, prognosis and goals of care were discussed. Appropriate forms and documentation to accomplish the goals of care were discussed. All questions were answered. She confirms that in the past he had been a DNAR, elected to transition to DNAR and is requesting that two physicians sign for the OOHDNAR as she is unable to commute to the hospital and come in to sign the document herself. Communicated with Dr Swain. Time Spent (mins): 20
--- NOTE | 2020-02-03 17:21 | CT ---
"PRELIMINARY REPORT" CTA Angio Head W WO Con History: A fascia. Right-sided weakness Comparison: None. Findings: CT angiogram of the head and neck performed after the intravenous administration of contras t. 3-D rendering provided. Lung apices are relatively clear given the hypoinflated state. Transverse aorta is intact. Pulmonary trunk size is normal. Cerclage wires of the posterior elements cervical spine with laminectomy change. There is been interb mone fusion from C3-C7. The right vertebral artery is patent. The left vertebral artery is patent. The vertebral arteries are codominant. The right common carotid artery is patent. The right internal carotid artery is patent. The left common carotid artery is patent. The left internal carotid artery is patent. No hemodynamica lly significant stenosis per NASCET criteria. The anterior cerebral arteries are patent. Middle cerebral arteries are patent. Posterior cerebral ar teries are patent. The [place] is without stenosis, thrombosis nor aneurysm formation. The dural venous sinuses are patent. Hypoplastic left transverse sinus. Impression: 1. No hemodynamically significant stenosis of the internal carotid arteries per NASCET criteria. 2. The [place] is without stenosis, thrombosis nor aneurysm formation. Dr. Patel notified of findings via telephone at 7:19 PM Transcribed Date/Time: 02/03/2020 5:21 PM
[2020-02-03] MEDS: Atorvastatin Calcium 20 MG TAB PO SCH (21:48)
[2020-02-04] MEDS: Dexamethasone 4 mg/ml Vial SLOW IVP SCH ×4 (00:25→17:00)
[2020-02-04] MEDS: Metoprolol Tartrate 5 MG/5 ML VIAL IVP SCH ×6 (00:25→21:36)
--- NOTE | 2020-02-04 12:23 | PDOC.HOSPP ---
- Subjective Encounter Date: 02/04/20 Encounter Time: 09:20 Subjective: No remarkable improvement in his speech. Still severe dysarthria. Admitted to for swallow study. He has a severe aspiration risk. He continues to be n.p.o. - Objective Vital Signs & Weight: Vital Signs (12 hours) Temp Pulse Resp BP Pulse Ox 02/04/20 11:43 97.6 F 68 18 128/76 95 02/04/20 07:57 96 02/04/20 07:42 97.5 F L 72 18 130/77 96 02/04/20 04:38 96.4 F L 72 18 130/86 93 L 02/04/20 00:28 96.7 F L 86 16 157/83 H 96 Weight Admit Weight 213 lb 8 oz Weight 213 lb 8 oz I&O: 02/03/20 02/04/20 02/05/20 06:59 06:59 06:59 Intake Total 540 140 Output Total 675 Balance 540 -535 Result Diagrams: 02/01/20 04:45 02/01/20 06:39 Hospitalist ROS - Medication Medications: Active Medications Generic Name Dose Route Start Last Admin Trade Name Freq PRN Reason Stop Dose Admin Atorvastatin Calcium 20 mg 02/01/20 21:00 02/03/20 21:48 Atorvastatin Calcium 20 Mg Tab PO Not Given HS GEETA Clonidine 0.1 mg 02/01/20 17:02 02/01/20 17:14 Clonidine 0.1 Mg Tab PO 0.1 mg Q8H PRN Administration SBP >150 Clonidine 0.2 mg 02/02/20 16:00 02/02/20 15:28 Clonidine 0.2mg/24 Hour Patch TD 0.2 mg Q7D GEETA Administration Dexamethasone 4 mg 02/02/20 12:00 02/04/20 05:58 Dexamethasone 4 Mg/Ml Vial SLOW IVP 4 mg Q6HR GEETA Administration Levetiracetam 500 mg/ Device 100 mls @ 200 mls/hr 02/03/20 21:00 02/04/20 08:00 IVPB 100 mls BID GEETA Administration Labetalol HCl 10 mg 02/01/20 17:01 02/02/20 13:23 Labetalol Hcl 100 Mg/20 Ml Vial SLOW IVP 10 mg Q4H PRN Administration SBP > 140 Lorazepam 1 mg 02/02/20 17:42 02/03/20 23:42 Lorazepam 2 Mg/Ml Vial SLOW IVP 1 mg Q6H PRN Administration .AGITATION Metoprolol Tartrate 5 mg 02/02/20 21:00 02/04/20 08:02 Metoprolol Tartrate 5 Mg/5 Ml Vial IVP 5 mg Q4HR GEETA Administration Sodium Chloride 10 ml 01/31/20 22:30 02/01/20 20:42 Flush - Normal Saline 10 Ml Syringe IVF 10 ml PRN PRN Administration Saline Flush - Exam General Appearance: NAD, awake alert Eye: PERRL ENT: normocephalic atraumatic Neck: supple Heart: RRR Respiratory: CTAB Gastrointestinal: soft, normal bowel sounds Neurological: no focal deficits Psychiatric: oriented to person Hosp A/P - Plan Right side weakness and a phasic present on admission which seems to be resolved as I do not appreciate any weakness on his right upper extremity as well as lower extremity. -Prior admission in October and November for similar come concerns and he completed a stroke work-up at that time as well. History of right parietal and occipital stroke Probable seizure with a transient amnesia prior to current admission - MR new patchy infarct in the left posterior middle cerebral artery distribution and a fairly marketed petechial hemorrhage -suggestive of left posterior parietal mass -No evidence of extra axial hemorrhage or intracerebral hematoma -Neurosurgery consult pending -He is not on any seizure medications from his last hospitalization. -Ativan PRN for seizure Hypertension --It does not appear that his home medications are updated. Will start him low- dose lisinopril and hydralazine as needed. - -Echo ---------------> EF of 55%. Diastolic dysfunction. Moderately dilated left atrium. Mild tricuspid regurgitation. -PT OT consult placed. Intraparenchymal hemorrhage Vasogenic edema He has vasogenic edema on the repeat CT head today with acute intraparenchymal hemorrhage involving the left parietal lobe. No neurosurgical intervention. I am starting him on Decadron for vasogenic edema. --Blood pressure control to keep the systolic below 140. -He is on lisinopril. However with his mentation he may not be able to take that. I will schedule IV blood pressure medication. DC the p.o. for now once mentation is improved then will start him back on p.o. blood pressure medication. -Aloe up with electroencephalogram report. DC Lovenox for DVT prophylaxis and aspirin. since clinical progression and improvement is not immediately favorable and she is full code will consult to the palliative to help with family interactions and code reevaluation. -We will repeat the CT head in 1 week or earlier if any changes in his neurological status. -Have to really assess the vasogenic edema as he is on Decadron currently. -Electroencephalogram shows moderate to severe generalized nonspecific cerebral dysfunction. -PT OT on board. -We will see next 1 to 2 days if there is any neurological improvement. -He would be a candidate for rehab versus half-way facility placement at this point. dysarthria Severe dysphagia -ongoing n.p.o. palliative checked w.. , and ok w.. a diet and assoc'd risk. --soft diet w.. honey nectar thick. Upper lipidemia with LDL of 144 ---lipitor--has to be done with applesauce
--- NOTE | 2020-02-04 12:40 | PDOC.NEUPN ---
- Subjective Encounter Date: 02/04/20 Subjective: Patient continues to be aphasic and but more cam today. He does not follow commands. - Objective Vital Signs & Weight: Vital Signs (12 hours) Temp Pulse Resp BP Pulse Ox 02/04/20 11:43 97.6 F 68 18 128/76 95 02/04/20 07:57 96 02/04/20 07:42 97.5 F L 72 18 130/77 96 02/04/20 04:38 96.4 F L 72 18 130/86 93 L Weight Admit Weight 213 lb 8 oz Weight 213 lb 8 oz I&O: 02/03/20 02/04/20 02/05/20 06:59 06:59 06:59 Intake Total 540 140 Output Total 675 Balance 540 -535 Result Diagrams: 02/01/20 04:45 02/01/20 06:39 Radiology Reviewed by me: Yes EKG Reviewed by me: Yes ROS - Review of Systems ROS unobtainable: due to mental status (aphasic) - Medication Medications: Active Medications Generic Name Dose Route Start Last Admin Trade Name Freq PRN Reason Stop Dose Admin Atorvastatin Calcium 20 mg 02/01/20 21:00 02/03/20 21:48 Atorvastatin Calcium 20 Mg Tab PO Not Given HS GEETA Clonidine 0.1 mg 02/01/20 17:02 02/01/20 17:14 Clonidine 0.1 Mg Tab PO 0.1 mg Q8H PRN Administration SBP >150 Clonidine 0.2 mg 02/02/20 16:00 02/02/20 15:28 Clonidine 0.2mg/24 Hour Patch TD 0.2 mg Q7D GEETA Administration Dexamethasone 4 mg 02/02/20 12:00 02/04/20 12:09 Dexamethasone 4 Mg/Ml Vial SLOW IVP 4 mg Q6HR GEETA Administration Levetiracetam 500 mg/ Device 100 mls @ 200 mls/hr 02/03/20 21:00 02/04/20 08:00 IVPB 100 mls BID GEETA Administration Labetalol HCl 10 mg 02/01/20 17:01 02/02/20 13:23 Labetalol Hcl 100 Mg/20 Ml Vial SLOW IVP 10 mg Q4H PRN Administration SBP > 140 Lorazepam 1 mg 02/02/20 17:42 02/03/20 23:42 Lorazepam 2 Mg/Ml Vial SLOW IVP 1 mg Q6H PRN Administration .AGITATION Metoprolol Tartrate 5 mg 02/02/20 21:00 02/04/20 12:09 Metoprolol Tartrate 5 Mg/5 Ml Vial IVP 5 mg Q4HR GEETA Administration Sodium Chloride 10 ml 01/31/20 22:30 02/01/20 20:42 Flush - Normal Saline 10 Ml Syringe IVF 10 ml PRN PRN Administration Saline Flush - Exam General Appearance: awake alert Eye: PERRL ENT: normocephalic atraumatic Neck: supple Respiratory: CTAB Cardiovascular: RRR Gastrointestinal: soft Extremities: no cyanosis Skin: normal turgor Neurological: no new deficit, speech deficit Musculoskeletal: normal tone, no muscle wasting PSYCH: not oriented (aphasic) Results - Labs Result Diagrams: 02/01/20 04:45 02/01/20 06:39 Lab results: WBC 12.8 thou/uL (4.8-10.8) H 02/01/20 04:45 Hgb 16.2 g/dL (14.0-18.0) 02/01/20 04:45 Hct 51.2 % (42.0-52.0) 02/01/20 04:45 MCV 101.0 fL (78.0-98.0) H 02/01/20 04:45 Plt Count 168 thou/uL (130-400) 02/01/20 04:45 Neutrophils % 51.4 % (42.0-75.0) 01/31/20 19:00 Sodium 137 mmol/L (136-145) 02/01/20 06:39 Potassium 3.7 mmol/L (3.5-5.1) 02/01/20 06:39 Chloride 104 mmol/L (98-107) 02/01/20 06:39 Carbon Dioxide 24 mmol/L (23-31) 02/01/20 06:39 BUN 26 mg/dL (8.4-25.7) H 02/01/20 06:39 Creatinine 1.06 mg/dL (0.7-1.3) 02/01/20 06:39 Glucose 104 mg/dL (80-115) 02/01/20 06:39 Calcium 8.5 mg/dL (7.8-10.44) 02/01/20 06:39 Total Bilirubin 0.9 mg/dL (0.2-1.2) 02/01/20 06:39 AST 24 U/L (5-34) 02/01/20 06:39 ALT 17 U/L (8-55) 02/01/20 06:39 Alkaline Phosphatase 115 U/L (40-110) H 02/01/20 06:39 Ammonia 60 umol/L (18-72) 01/31/20 22:55 Creatine Kinase 126 U/L (30-200) 01/31/20 19:00 Troponin I Less than 0.010 ng/mL (< 0.028) 02/01/20 01:09 Serum Total Protein 6.6 g/dL (5.8-8.1) 02/01/20 06:39 Albumin 3.3 g/dL (3.4-4.8) L 02/01/20 06:39 PN A/P (1) CVA (cerebral vascular accident) Code(s): I63.9 - CEREBRAL INFARCTION, UNSPECIFIED Status: Acute (2) Cerebral hemorrhage Code(s): I61.9 - NONTRAUMATIC INTRACEREBRAL HEMORRHAGE, UNSPECIFIED Status: Acute - Plan Daily Plan: PT/OT, speech therapy, DVT proph w/SCDs Mr Ashford has history of right parietal and occipital stroke presented with possible seizure like activity.MRI brain consistent with acute infarction. Patient is globally aphasic. Continue speech therapy. Swallow eval for dysphagia. EEG reviewed which was negative for seizure activity. MRI brain reviewed which showed patchy infarct in the left posterior middle cerebral artery distribution and a fairly IP hemorrhage with vasogenic edema. No intervention per NSGY. Continue decadron. Neurochecks every 2 hours. Continue Keppra 500 mg bid for seizure prophylaxis.- 2D echo showed LVEF of 55%. Diastolic dysfunction. No thrombus or PFO. . Strict control of BP and GBG Continue Telemetry Continue medical management per primary team PT/OT/Speech Palliative care team on board CM on board regarding discharge planning. Case discussed during MDR rounds
[2020-02-04] MEDS: Atorvastatin Calcium 20 MG TAB PO SCH ×2 (21:32→23:43)
[2020-02-05] MEDS: Metoprolol Tartrate 5 MG/5 ML VIAL IVP SCH ×6 (00:48→22:21)
[2020-02-05] MEDS: Dexamethasone 4 mg/ml Vial SLOW IVP SCH ×4 (00:49→17:25)
[2020-02-05 05:27] LABS: #Lymphocytes 1.2 thou/uL (1.20-3.40); #Monocytes 1.1 thou/uL (0.11-0.59); #Neutrophils 16.8 thou/uL (1.40-6.50); %Eosinophils 0.1 % (0.0-10.0); %Lymphocytes 6.1 % (21.0-51.0); %Neutrophils 87.8 % (42.0-75.0); Hemoglobin 15.6 g/dL (14.0-18.0); Mean Corpuscular HGB CONC 32.1 g/dL (32.0-36.0); Mean Corpuscular Hemoglobin 31.3 pg (27.0-31.0); Mean Corpuscular Volume 97.6 fL (78.0-98.0); Mean Platelet Volume 8.5 fL (7.4-10.4); Platelet Count 283 thou/uL (130-400); Red Blood Cell (RBC) Count 4.97 mill/uL (4.70-6.10); White Blood Cell (WBC) Count 19.1 thou/uL (4.8-10.8)
[2020-02-05 05:48] LABS: Anion Gap 14 mmol/L (10-20); BUN (Urea Nitrogen) 40 mg/dL (8.4-25.7); Calc. Creatinine Clearance 97 mL/min (70-130); Carbon Dioxide 19 mmol/L (23-31); Chloride 108 mmol/L (98-107); Estimated GFR-MDRD 77; Glucose 131 mg/dL (80-115); Potassium 4.7 mmol/L (3.5-5.1); Sodium 136 mmol/L (136-145)
--- NOTE | 2020-02-05 10:40 | RAD ---
Portable frontal chest radiograph: 02/05/2020 COMPARISON: 10/22/2018 HISTORY: Elevated white blood cell count, evaluate for aspiration Findings: Heart and mediastinal contours are stable. No pneumothorax or pleural fluid. No focal conso lidation or alveolar edema. Mild increased linear density noted in the perihilar regions and left lung base, unchanged. IMPRESSION: Stable appearance of the chest. No focal consolidation or alveolar edema.
[2020-02-05] MEDS ORDERED: Senokot 8.6 MG TAB PO SCH ×2 (12:02→21:00)
[2020-02-05] MEDS ORDERED: Polyethylene Glycol 3350 17 GM Packet PO PRN (12:02)
--- NOTE | 2020-02-05 12:31 | PDOC.NEUPN ---
- Subjective Encounter Date: 02/05/20 Subjective: Patient continues to be aphasic - Objective Vital Signs & Weight: Vital Signs (12 hours) Temp Pulse Resp BP BP Pulse Ox 02/05/20 11:34 97.5 F L 55 L 16 126/68 95 02/05/20 07:48 97.5 F L 52 L 16 119/71 96 02/05/20 04:00 97.5 F L 54 L 16 120/75 95 Weight Admit Weight 213 lb 8 oz Weight 213 lb 8 oz I&O: 02/04/20 02/05/20 02/06/20 06:59 06:59 06:59 Intake Total 140 1020 Output Total 675 Balance -535 1020 Result Diagrams: 02/05/20 05:01 02/05/20 05:01 Radiology Reviewed by me: Yes EKG Reviewed by me: Yes ROS - Review of Systems ROS unobtainable: due to mental status (aphasic) - Medication Medications: Active Medications Generic Name Dose Route Start Last Admin Trade Name Freq PRN Reason Stop Dose Admin Atorvastatin Calcium 20 mg 02/04/20 21:00 02/04/20 21:32 Atorvastatin Calcium 20 Mg Tab PO 20 mg HS GEETA Administration Clonidine 0.1 mg 02/01/20 17:02 02/01/20 17:14 Clonidine 0.1 Mg Tab PO 0.1 mg Q8H PRN Administration SBP >150 Clonidine 0.2 mg 02/02/20 16:00 02/02/20 15:28 Clonidine 0.2mg/24 Hour Patch TD 0.2 mg Q7D GEETA Administration Dexamethasone 4 mg 02/02/20 12:00 02/05/20 05:43 Dexamethasone 4 Mg/Ml Vial SLOW IVP 4 mg Q6HR GEETA Administration Levetiracetam 500 mg/ Device 100 mls @ 200 mls/hr 02/03/20 21:00 02/05/20 09:35 IVPB 100 mls BID GEETA Administration Labetalol HCl 10 mg 02/01/20 17:01 02/02/20 13:23 Labetalol Hcl 100 Mg/20 Ml Vial SLOW IVP 10 mg Q4H PRN Administration SBP > 140 Lorazepam 1 mg 02/02/20 17:42 02/03/20 23:42 Lorazepam 2 Mg/Ml Vial SLOW IVP 1 mg Q6H PRN Administration .AGITATION Metoprolol Tartrate 5 mg 02/02/20 21:00 02/05/20 09:35 Metoprolol Tartrate 5 Mg/5 Ml Vial IVP 5 mg Q4HR GEETA Administration Sodium Chloride 10 ml 01/31/20 22:30 02/01/20 20:42 Flush - Normal Saline 10 Ml Syringe IVF 10 ml PRN PRN Administration Saline Flush - Exam General Appearance: awake alert Eye: PERRL ENT: normocephalic atraumatic Neck: supple Respiratory: CTAB Cardiovascular: RRR Gastrointestinal: soft Extremities: no cyanosis Skin: normal turgor Neurological: no new deficit, speech deficit Musculoskeletal: normal tone, no muscle wasting PSYCH: normal affect, normal behavior, A&O x 3 Results - Labs Result Diagrams: 02/05/20 05:01 02/05/20 05:01 Lab results: WBC 19.1 thou/uL (4.8-10.8) H 02/05/20 05:01 Hgb 15.6 g/dL (14.0-18.0) 02/05/20 05:01 Hct 48.5 % (42.0-52.0) 02/05/20 05:01 MCV 97.6 fL (78.0-98.0) 02/05/20 05:01 Plt Count 283 thou/uL (130-400) 02/05/20 05:01 Neutrophils % 87.8 % (42.0-75.0) H 02/05/20 05:01 Sodium 136 mmol/L (136-145) 02/05/20 05:01 Potassium 4.7 mmol/L (3.5-5.1) 02/05/20 05:01 Chloride 108 mmol/L (98-107) H 02/05/20 05:01 Carbon Dioxide 19 mmol/L (23-31) L 02/05/20 05:01 BUN 40 mg/dL (8.4-25.7) H 02/05/20 05:01 Creatinine 0.97 mg/dL (0.7-1.3) 02/05/20 05:01 Glucose 131 mg/dL (80-115) H 02/05/20 05:01 Calcium 9.0 mg/dL (7.8-10.44) 02/05/20 05:01 Total Bilirubin 0.9 mg/dL (0.2-1.2) 02/01/20 06:39 AST 24 U/L (5-34) 02/01/20 06:39 ALT 17 U/L (8-55) 02/01/20 06:39 Alkaline Phosphatase 115 U/L (40-110) H 02/01/20 06:39 Ammonia 60 umol/L (18-72) 01/31/20 22:55 Creatine Kinase 126 U/L (30-200) 01/31/20 19:00 Troponin I Less than 0.010 ng/mL (< 0.028) 02/01/20 01:09 Serum Total Protein 6.6 g/dL (5.8-8.1) 02/01/20 06:39 Albumin 3.3 g/dL (3.4-4.8) L 02/01/20 06:39 - Radiology Interpretation MRI - head Status: image reviewed by me, report reviewed by me Additional Comment: MRI brain showed acute infarction in the left MCA territory with hemorrhage. PN A/P (1) CVA (cerebral vascular accident) Code(s): I63.9 - CEREBRAL INFARCTION, UNSPECIFIED Status: Acute (2) Cerebral hemorrhage Code(s): I61.9 - NONTRAUMATIC INTRACEREBRAL HEMORRHAGE, UNSPECIFIED Status: Acute - Plan Daily Plan: PT/OT, speech therapy, DVT proph w/SCDs Mr Ashford has history of right parietal and occipital stroke presented with possible seizure like activity.MRI brain consistent with acute infarction. Patient is globally aphasic. Continue speech therapy. CM on board regarding discharge planning. EEG reviewed which was negative for seizure activity. MRI brain reviewed which showed patchy infarct in the left posterior middle cerebral artery distribution and a fairly IP hemorrhage with vasogenic edema. No intervention per NSGY. Continue decadron. Neurochecks every 2 hours. Continue Keppra 500 mg bid for seizure prophylaxis.- 2D echo showed LVEF of 55%. Diastolic dysfunction. No thrombus or PFO. . Strict control of BP and GBG Continue Telemetry Continue medical management per primary team PT/OT/Speech Palliative care team on board
[2020-02-05 12:46] LABS: Bilirubin Negative (Negative); Blood, Urine Negative (Negative); Clarity Clear (Clear); Glucose, Urine (Dipstick) Normal (Negative); Ketone, Urine Negative (Negative); Leukocyte Negative Leu/uL (Negative); Nitrite Negative (Negative); Protein, Urine (Dipstick) Negative (Neg-Trace); Specific Gravity, Urine 1.026 (1.002-1.036)
--- NOTE | 2020-02-05 12:53 | PDOC.HOSPP ---
- Subjective Encounter Date: 02/05/20 Encounter Time: 09:30 Subjective: Patient is covering himself completely. He is following commands he is not confused at this point. However he does have a severe sundowning. He has a urine retention with ultrasound showing over 500 mL. Straight cath done. May be this is the reason why he had elevated white count today. Afebrile. I got the chest x-ray which showed no consolidation or new infiltrate. Urine analysis pending. He would likely need intermittent straight cath to prevent any hydronephrosis and further kidney dysfunction. - Objective Vital Signs & Weight: Vital Signs (12 hours) Temp Pulse Resp BP BP Pulse Ox 02/05/20 11:34 97.5 F L 55 L 16 126/68 95 02/05/20 07:48 97.5 F L 52 L 16 119/71 96 02/05/20 04:00 97.5 F L 54 L 16 120/75 95 Weight Admit Weight 213 lb 8 oz Weight 213 lb 8 oz I&O: 02/04/20 02/05/20 02/06/20 06:59 06:59 06:59 Intake Total 140 1020 Output Total 675 Balance -535 1020 Result Diagrams: 02/05/20 05:01 02/05/20 05:01 Hospitalist ROS - Medication Medications: Active Medications Generic Name Dose Route Start Last Admin Trade Name Freq PRN Reason Stop Dose Admin Atorvastatin Calcium 20 mg 02/04/20 21:00 02/04/20 21:32 Atorvastatin Calcium 20 Mg Tab PO 20 mg HS GEETA Administration Clonidine 0.1 mg 02/01/20 17:02 02/01/20 17:14 Clonidine 0.1 Mg Tab PO 0.1 mg Q8H PRN Administration SBP >150 Clonidine 0.2 mg 02/02/20 16:00 02/02/20 15:28 Clonidine 0.2mg/24 Hour Patch TD 0.2 mg Q7D GEETA Administration Dexamethasone 4 mg 02/02/20 12:00 02/05/20 12:46 Dexamethasone 4 Mg/Ml Vial SLOW IVP 4 mg Q6HR GEETA Administration Levetiracetam 500 mg/ Device 100 mls @ 200 mls/hr 02/03/20 21:00 02/05/20 09:35 IVPB 100 mls BID GEETA Administration Labetalol HCl 10 mg 02/01/20 17:01 02/02/20 13:23 Labetalol Hcl 100 Mg/20 Ml Vial SLOW IVP 10 mg Q4H PRN Administration SBP > 140 Lorazepam 1 mg 02/02/20 17:42 02/03/20 23:42 Lorazepam 2 Mg/Ml Vial SLOW IVP 1 mg Q6H PRN Administration .AGITATION Metoprolol Tartrate 5 mg 02/02/20 21:00 02/05/20 12:46 Metoprolol Tartrate 5 Mg/5 Ml Vial IVP 5 mg Q4HR GEETA Administration Polyethylene Glycol 17 gm 02/05/20 12:02 02/05/20 12:46 Polyethylene Glycol 3350 17 Gm Packet PO 17 gm DAILY PRN Administration Constipation Senna 2 tab 02/05/20 12:02 02/05/20 12:46 Senokot 8.6 Mg Tab PO 02/05/20 14:00 2 tab 1202 GEETA Administration Sodium Chloride 10 ml 01/31/20 22:30 02/01/20 20:42 Flush - Normal Saline 10 Ml Syringe IVF 10 ml PRN PRN Administration Saline Flush - Exam General Appearance: NAD, awake alert Eye: PERRL ENT: normocephalic atraumatic Neck: supple Heart: RRR Respiratory: CTAB, normal chest expansion Gastrointestinal: soft, normal bowel sounds Neurological: no focal deficits Psychiatric: A&O x 3 Hosp A/P - Plan Right side weakness and a phasic present on admission which seems to be resolved as I do not appreciate any weakness on his right upper extremity as well as lower extremity. -Prior admission in October and November for similar come concerns and he completed a stroke work-up at that time as well. History of right parietal and occipital stroke Probable seizure with a transient amnesia prior to current admission - MR new patchy infarct in the left posterior middle cerebral artery distribution and a fairly marketed petechial hemorrhage -suggestive of left posterior parietal mass -No evidence of extra axial hemorrhage or intracerebral hematoma -Neurosurgery consult pending -He is not on any seizure medications from his last hospitalization. -Ativan PRN for seizure Hypertension --It does not appear that his home medications are updated. Will start him low- dose lisinopril and hydralazine as needed. - -Echo ---------------> EF of 55%. Diastolic dysfunction. Moderately dilated left atrium. Mild tricuspid regurgitation. -PT OT consult placed. Intraparenchymal hemorrhage Vasogenic edema He has vasogenic edema on the repeat CT head today with acute intraparenchymal hemorrhage involving the left parietal lobe. No neurosurgical intervention. I am starting him on Decadron for vasogenic edema. --Blood pressure control to keep the systolic below 140. -He is on lisinopril. However with his mentation he may not be able to take that. I will schedule IV blood pressure medication. DC the p.o. for now once m entation is improved then will start him back on p.o. blood pressure medication. -Aloe up with electroencephalogram report. DC Lovenox for DVT prophylaxis and aspirin. since clinical progression and improvement is not immediately favorable and she is full code will consult to the palliative to help with family interactions and code reevaluation. -We will repeat the CT head in 1 week or earlier if any changes in his neurological status. -Have to really assess the vasogenic edema as he is on Decadron currently. -Electroencephalogram shows moderate to severe generalized nonspecific cerebral dysfunction. -PT OT on board. -We will see next 1 to 2 days if there is any neurological improvement. -He would be a candidate for rehab versus prison facility placement at this point. dysarthria Severe dysphagia -ongoing n.p.o. palliative checked w.. , and ok w.. a diet and assoc'd risk. --soft diet w.. honey nectar thick. Upper lipidemia with LDL of 144 ---lipitor--has to be done with applesauce severe . -Supportive measures including soft restraints if needed. 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 Urine retention Leukocytosis --ultrasound showing over 500 mL. Straight cath done. May be this is the reason why he had elevated white count today. -Afebrile. I got the chest x-ray which showed no consolidation or new infiltrate. -Urine analysis pending. He would likely need intermittent straight cath to prevent any hydronephrosis and further kidney dysfunction. - Not on any antibiotics. Await until UA results back.
--- NOTE | 2020-02-05 13:19 | PDOC.HOSPP ---
- Subjective Encounter Date: 02/05/20 Encounter Time: 11:00 Subjective: Patient is sleeping soundly. On awakening he can respond but still has a significant dysarthria. - Objective Vital Signs & Weight: Vital Signs (12 hours) Temp Pulse Resp BP BP Pulse Ox 02/05/20 11:34 97.5 F L 55 L 16 126/68 95 02/05/20 07:48 97.5 F L 52 L 16 119/71 96 02/05/20 04:00 97.5 F L 54 L 16 120/75 95 Weight Admit Weight 213 lb 8 oz Weight 213 lb 8 oz I&O: 02/04/20 02/05/20 02/06/20 06:59 06:59 06:59 Intake Total 140 1020 Output Total 675 Balance -535 1020 Result Diagrams: 02/05/20 05:01 02/05/20 05:01 Hospitalist ROS - Medication Medications: Active Medications Generic Name Dose Route Start Last Admin Trade Name Freq PRN Reason Stop Dose Admin Atorvastatin Calcium 20 mg 02/04/20 21:00 02/04/20 21:32 Atorvastatin Calcium 20 Mg Tab PO 20 mg HS GEETA Administration Clonidine 0.1 mg 02/01/20 17:02 02/01/20 17:14 Clonidine 0.1 Mg Tab PO 0.1 mg Q8H PRN Administration SBP >150 Clonidine 0.2 mg 02/02/20 16:00 02/02/20 15:28 Clonidine 0.2mg/24 Hour Patch TD 0.2 mg Q7D GEETA Administration Dexamethasone 4 mg 02/02/20 12:00 02/05/20 12:46 Dexamethasone 4 Mg/Ml Vial SLOW IVP 4 mg Q6HR GEETA Administration Levetiracetam 500 mg/ Device 100 mls @ 200 mls/hr 02/03/20 21:00 02/05/20 09:35 IVPB 100 mls BID GEETA Administration Labetalol HCl 10 mg 02/01/20 17:01 02/02/20 13:23 Labetalol Hcl 100 Mg/20 Ml Vial SLOW IVP 10 mg Q4H PRN Administration SBP > 140 Lorazepam 1 mg 02/02/20 17:42 02/03/20 23:42 Lorazepam 2 Mg/Ml Vial SLOW IVP 1 mg Q6H PRN Administration .AGITATION Metoprolol Tartrate 5 mg 02/02/20 21:00 02/05/20 12:46 Metoprolol Tartrate 5 Mg/5 Ml Vial IVP 5 mg Q4HR GEETA Administration Polyethylene Glycol 17 gm 02/05/20 12:02 02/05/20 12:46 Polyethylene Glycol 3350 17 Gm Packet PO 17 gm DAILY PRN Administration Constipation Senna 2 tab 02/05/20 12:02 02/05/20 12:46 Senokot 8.6 Mg Tab PO 02/05/20 14:00 2 tab 1202 GEETA Administration Sodium Chloride 10 ml 01/31/20 22:30 02/01/20 20:42 Flush - Normal Saline 10 Ml Syringe IVF 10 ml PRN PRN Administration Saline Flush - Exam General Appearance: NAD, ill appearing Eye: PERRL ENT: normocephalic atraumatic Neck: supple Heart: RRR Respiratory: CTAB, normal chest expansion Gastrointestinal: soft, normal bowel sounds Extremities: 2+ LE edema Neurological: cranial nerve grossly intact, no focal deficits Hosp A/P - Plan Right side weakness and a phasic present on admission which seems to be resolved as I do not appreciate any weakness on his right upper extremity as well as lower extremity. -Prior admission in October and November for similar come concerns and he completed a stroke work-up at that time as well. History of right parietal and occipital stroke Probable seizure with a transient amnesia prior to current admission - MR new patchy infarct in the left posterior middle cerebral artery distribution and a fairly marketed petechial hemorrhage -suggestive of left posterior parietal mass -No evidence of extra axial hemorrhage or intracerebral hematoma -Neurosurgery consult pending -He is not on any seizure medications from his last hospitalization. -Ativan PRN for seizure Hypertension --It does not appear that his home medications are updated. Will start him low- dose lisinopril and hydralazine as needed. - -Echo ---------------> EF of 55%. Diastolic dysfunction. Moderately dilated left atrium. Mild tricuspid regurgitation. -PT OT consult placed. Intraparenchymal hemorrhage Vasogenic edema He has vasogenic edema on the repeat CT head today with acute intraparenchymal hemorrhage involving the left parietal lobe. No neurosurgical intervention. I am starting him on Decadron for vasogenic edema. --Blood pressure control to keep the systolic below 140. -He is on lisinopril. However with his mentation he may not be able to take that. I will schedule IV blood pressure medication. DC the p.o. for now once mentation is improved then will start him back on p.o. blood pressure medicatio n. -Aloe up with electroencephalogram report. DC Lovenox for DVT prophylaxis and aspirin. since clinical progression and improvement is not immediately favorable and she is full code will consult to the palliative to help with family interactions and code reevaluation. -We will repeat the CT head in 1 week or earlier if any changes in his neurological status. -Have to really assess the vasogenic edema as he is on Decadron currently. -Electroencephalogram shows moderate to severe generalized nonspecific cerebral dysfunction. -PT OT on board. -We will see next 1 to 2 days if there is any neurological improvement. -He would be a candidate for rehab versus penitentiary facility placement at this point. dysarthria Severe dysphagia -ongoing n.p.o. palliative checked w.. , and ok w.. a diet and assoc'd risk. --soft diet w.. honey nectar thick. Upper lipidemia with LDL of 144 ---lipitor--has to be done with applesauce Pending rehab
[2020-02-05] MEDS: Atorvastatin Calcium 20 MG TAB PO SCH (22:21)
[2020-02-06] MEDS: Dexamethasone 4 mg/ml Vial SLOW IVP SCH ×4 (00:24→17:35)
[2020-02-06] MEDS: Metoprolol Tartrate 5 MG/5 ML VIAL IVP SCH ×6 (00:27→17:35)
[2020-02-06 10:09] LABS: #Basophils 0.1 thou/uL (0.0-0.2); #Lymphocytes 0.7 thou/uL (1.20-3.40); #Monocytes 0.9 thou/uL (0.11-0.59); #Neutrophils 14.5 thou/uL (1.40-6.50); %Basophils 0.4 % (0.0-1.0); %Eosinophils 0.1 % (0.0-10.0); %Lymphocytes 4.4 % (21.0-51.0); %Monocytes 5.4 % (0.0-10.0); %Neutrophils 89.8 % (42.0-75.0); Hemoglobin 17.7 g/dL (14.0-18.0); Mean Corpuscular HGB CONC 32.2 g/dL (32.0-36.0); Mean Corpuscular Hemoglobin 32.1 pg (27.0-31.0); Mean Corpuscular Volume 99.6 fL (78.0-98.0); Mean Platelet Volume 8.5 fL (7.4-10.4); Platelet Count 263 thou/uL (130-400); Red Blood Cell (RBC) Count 5.52 mill/uL (4.70-6.10); White Blood Cell (WBC) Count 16.1 thou/uL (4.8-10.8)
[2020-02-06 10:21] LABS: Anion Gap 14 mmol/L (10-20); BUN (Urea Nitrogen) 36 mg/dL (8.4-25.7); Calc. Creatinine Clearance 102 mL/min (70-130); Calcium 9.1 mg/dL (7.8-10.44); Carbon Dioxide 16 mmol/L (23-31); Chloride 109 mmol/L (98-107); Estimated GFR-MDRD 81; Glucose 129 mg/dL (80-115); Potassium 4.6 mmol/L (3.5-5.1); Sodium 134 mmol/L (136-145)
--- NOTE | 2020-02-06 14:05 | PDOC.HOSPP ---
- Subjective Encounter Date: 02/06/20 Encounter Time: 09:30 Subjective: Patient is not having any acute distress. He is still remain the same quite somnolent and fatigued. - Objective Vital Signs & Weight: Vital Signs (12 hours) Temp Pulse Pulse Pulse Resp BP BP 02/06/20 12:07 97.7 F 57 L 20 02/06/20 11:10 71 71 147/79 H 149/84 H 02/06/20 09:00 02/06/20 07:39 97.8 F 72 15 02/06/20 05:24 58 L 02/06/20 03:57 97.4 F L 74 18 BP BP Pulse Ox 02/06/20 12:07 140/78 96 02/06/20 11:10 02/06/20 09:00 96 02/06/20 07:39 144/87 H 96 02/06/20 05:24 135/71 02/06/20 03:57 156/94 H 95 Weight Admit Weight 213 lb 8 oz Weight 213 lb 8 oz I&O: 02/05/20 02/06/20 02/07/20 06:59 06:59 06:59 Intake Total 1020 300 480 Balance 1020 300 480 Result Diagrams: 02/06/20 09:55 02/06/20 09:55 Hospitalist ROS - Medication Medications: Active Medications Generic Name Dose Route Start Last Admin Trade Name Freq PRN Reason Stop Dose Admin Atorvastatin Calcium 20 mg 02/04/20 21:00 02/05/20 22:21 Atorvastatin Calcium 20 Mg Tab PO 20 mg HS GEETA Administration Clonidine 0.1 mg 02/01/20 17:02 02/01/20 17:14 Clonidine 0.1 Mg Tab PO 0.1 mg Q8H PRN Administration SBP >150 Clonidine 0.2 mg 02/02/20 16:00 02/02/20 15:28 Clonidine 0.2mg/24 Hour Patch TD 0.2 mg Q7D GEETA Administration Dexamethasone 4 mg 02/02/20 12:00 02/06/20 12:15 Dexamethasone 4 Mg/Ml Vial SLOW IVP 4 mg Q6HR GEETA Administration Levetiracetam 500 mg/ Device 100 mls @ 200 mls/hr 02/03/20 21:00 02/06/20 09:00 IVPB 100 mls BID GEETA Administration Labetalol HCl 10 mg 02/01/20 17:01 02/02/20 13:23 Labetalol Hcl 100 Mg/20 Ml Vial SLOW IVP 10 mg Q4H PRN Administration SBP > 140 Lorazepam 1 mg 02/02/20 17:42 02/03/20 23:42 Lorazepam 2 Mg/Ml Vial SLOW IVP 1 mg Q6H PRN Administration .AGITATION Metoprolol Tartrate 5 mg 02/02/20 21:00 02/06/20 12:12 Metoprolol Tartrate 5 Mg/5 Ml Vial IVP Not Given Q4HR GEETA Polyethylene Glycol 17 gm 02/05/20 12:02 02/05/20 12:46 Polyethylene Glycol 3350 17 Gm Packet PO 17 gm DAILY PRN Administration Constipation Senna 2 tab 02/05/20 21:00 02/05/20 22:21 Senokot 8.6 Mg Tab PO 2 tab HS GEETA Administration Sodium Chloride 10 ml 01/31/20 22:30 02/01/20 20:42 Flush - Normal Saline 10 Ml Syringe IVF 10 ml PRN PRN Administration Saline Flush - Exam General Appearance: ill appearing General - other findings: Somnolent Eye: PERRL ENT: normocephalic atraumatic Neck: supple Heart: RRR Respiratory: CTAB, normal chest expansion Gastrointestinal: soft, normal bowel sounds Neurological: speech deficit Psychiatric: not oriented Hosp A/P - Plan Right side weakness and a phasic present on admission which seems to be resolved as I do not appreciate any weakness on his right upper extremity as well as lower extremity. -Prior admission in October and November for similar come concerns and he completed a s troke work-up at that time as well. History of right parietal and occipital stroke Probable seizure with a transient amnesia prior to current admission - MR new patchy infarct in the left posterior middle cerebral artery distribution and a fairly marketed petechial hemorrhage -suggestive of left posterior parietal mass -No evidence of extra axial hemorrhage or intracerebral hematoma -Neurosurgery consult pending -He is not on any seizure medications from his last hospitalization. -Ativan PRN for seizure Hypertension --It does not appear that his home medications are updated. Will start him low- dose lisinopril and hydralazine as needed. - -Echo ---------------> EF of 55%. Diastolic dysfunction. Moderately dilated left atrium. Mild tricuspid regurgitation. -PT OT consult placed. Intraparenchymal hemorrhage Vasogenic edema He has vasogenic edema on the repeat CT head today with acute intraparenchymal hemorrhage involving the left parietal lobe. No neurosurgical intervention. I am starting him on Decadron for vasogenic edema. --Blood pressure control to keep the systolic below 140. -He is on lisinopril. However with his mentation he may not be able to take that. I will schedule IV blood pressure medication. DC the p.o. for now once mentation is improved then will start him back on p.o. blood pressure medication. -Aloe up with electroencephalogram report. DC Lovenox for DVT prophylaxis and aspirin. since clinical progression and improvement is not immediately favorable and she is full code will consult to the palliative to help with family interactions and code reevaluation. -We will repeat the CT head in 1 week or earlier if any changes in his ne urological status. -Have to really assess the vasogenic edema as he is on Decadron currently. -Electroencephalogram shows moderate to severe generalized nonspecific cerebral dysfunction. -PT OT on board. -We will see next 1 to 2 days if there is any neurological improvement. -He would be a candidate for rehab versus group home facility placement at this point. dysarthria Severe dysphagia -ongoing n.p.o. palliative checked w.. , and ok w.. a diet and assoc'd risk. --soft diet w.. honey nectar thick. Upper lipidemia with LDL of 144 ---lipitor--has to be done with applesauce Pending rehab 25th No acute medical management currently. Electroencephalogram shows moderate to severe generalized nonspecific cerebral dysfunction. repeat the CT head in 1 week or earlier if any changes in his neurological status. ok w.. a diet and assoc'd risk. --soft diet w.. honey nectar thick. -He is medically stable to be discharged to the rehab versus group home facility.
[2020-02-06 16:11] VITALS: TEMP 97.9
[2020-02-06 17:37] VITALS: BP 144/89
== END 2020-02-06 19:38 | DRG 64 ==
LOC: ERS 18:48 → EDBD 21:44 → 2SE 21:44
PROVIDERS: ADMIT Internal Medicine; ATTEND Internal Medicine
DX: I63.312 Cerebral infarction due to thrombosis of left middle cerebral artery (principal); I61.8 Other nontraumatic intracerebral hemorrhage; G93.6 Cerebral edema; G81.91 Hemiplegia, unspecified affecting right dominant side; Z20.828 Contact with and (suspected) exposure to other viral communicable diseases; R47.01 Aphasia; K74.60 Unspecified cirrhosis of liver; E78.5 Hyperlipidemia, unspecified; G40.909 Epilepsy, unspecified, not intractable, without status epilepticus; N40.0 Benign prostatic hyperplasia without lower urinary tract symptoms; R33.9 Retention of urine, unspecified; E78.00 Pure hypercholesterolemia, unspecified; R29.810 Facial weakness; I10 Essential (primary) hypertension; Z90.49 Acquired absence of other specified parts of digestive tract; Z87.01 Personal history of pneumonia (recurrent); Z90.81 Acquired absence of spleen
CPT/HCPCS: 36415; 36416; 70450; 70496; 70498; 70551; 70552; 71045; 76705; 80048; 80053; 80061; 81003; 82140; 82550; 83735; 84484; 85025; 85610; 85730; 87635; 93005; 93306; 95712; 95816; 95819; 95957; A9579; J1100; J1650; J1953; J2060; Q9967; U0003

== ENCOUNTER 2021-06-26 04:57 | Inpatient (IN) | payer MEDICARE ==
[2021-06-26 05:59] LABS: ALT (SGPT) 289 U/L (8-55); AST (SGOT) 570 U/L (5-34); Albumin 2.1 g/dL (3.4-4.8); Alkaline Phosphatase 155 U/L (40-110); Anion Gap 12 mmol/L (10-20); BUN (Urea Nitrogen) 35 mg/dL (8.4-25.7); Bilirubin, Direct 8.4 mg/dL (0.1-0.3); Bilirubin, Total 11.2 mg/dL (0.2-1.2); Calc. Creatinine Clearance 0 mL/min (70-130); Calcium 8.4 mg/dL (7.8-10.44); Carbon Dioxide 20 mmol/L (23-31); Chloride 108 mmol/L (98-107); Globulin 5.2 g/dL (2.4-3.5); Glucose 104 mg/dL (83-110); Lipase 36 U/L (8-78); Potassium 5.1 mmol/L (3.5-5.1); Protein, Total 7.3 g/dL (5.8-8.1); Sodium 135 mmol/L (136-145)
[2021-06-26 06:35] LABS: #Basophils 0.1 thou/uL (0.0-0.2); #Eosinphils 0.1 thou/uL (0.0-0.7); #Lymphocytes 2.5 thou/uL (1.20-3.40); #Monocytes 2.2 thou/uL (0.11-0.59); #Neutrophils 10.4 thou/uL (1.40-6.50); %Basophils 0.5 % (0.0-1.0); %Eosinophils 0.3 % (0.0-10.0); %Lymphocytes 16.1 % (21.0-51.0); %Monocytes 14.7 % (0.0-10.0); %Neutrophils 68.4 % (42.0-75.0); Anisocytosis MODERATE=16-30 cells (100X) (0-5/hpf); Hemoglobin 10.3 g/dL (14.0-18.0); MDiff Complete? YES; Mean Corpuscular HGB CONC 31.7 g/dL (32.0-36.0); Mean Corpuscular Hemoglobin 31.6 pg (27.0-31.0); Mean Corpuscular Volume 99.6 fL (78.0-98.0); Mean Platelet Volume 10.2 fL (7.4-10.4); Platelet Count 141 thou/uL (130-400); Platelet Morphology Comment Appears Adequate; RBC Distribution Width 21.2 % (11.5-14.5); Red Blood Cell (RBC) Count 3.26 mill/uL (4.70-6.10); Target Cells SLIGHT = 2-5 cells (100X) (0-1/hpf); White Blood Cell (WBC) Count 15.2 thou/uL (4.8-10.8)
[2021-06-26 06:53] LABS: Bilirubin 2+ (Negative); Blood, Urine Negative (Negative); Clarity Turbid (Clear); Glucose, Urine (Dipstick) Normal (Negative); Ketone, Urine 10 mg/dL (Negative); Leukocyte Negative Leu/uL (Negative); Nitrite Negative (Negative); Protein, Urine (Dipstick) 10 mg/dL (Neg-Trace); Specific Gravity, Urine 1.023 (1.002-1.036); Urobilinogen 3 mg/dL (Less than 2); pH, Urine 5.5 (5.0-9.0)
[2021-06-26] MEDS ORDERED: Ondansetron PF 4 MG/2 ML Vial ONE ×2 (07:09→12:03)
[2021-06-26] MEDS ORDERED: Pantoprazole 40 MG VIAL ONE (07:09)
[2021-06-26 07:14] LABS: Acetaminophen Less than 6.0 mcg/mL (10.0-30.0)
[2021-06-26 07:16] LABS: HBCM Index 0.09 S/CO (0-0.79); HBSAg Index 0.28 S/CO (0-0.99); Hep A IgM AB Non-Reactive (NonReactive); Hep A IgM S/CO 0.09 S/CO (0-0.79); Hep B Surf Ag Non-Reactive S/CO (NonReactive); Hepatitis B Core IgM Abs Non-Reactive (NonReactive)
[2021-06-26 07:19] LABS: INR-International Normal Ratio 3.1; Prothrombin Time 32.8 sec (12.0-14.7)
[2021-06-26 07:20] LABS: PTT 91.9 sec (22.9-36.1)
[2021-06-26 07:41] LABS: Hep C IgG Ab Reflex HepC Qnt (NonReactive); Hep C Index 5.67 S/CO (0-0.79)
[2021-06-26] MEDS ORDERED: Senokot S 8.6-50 MG TAB PO PRN (07:58)
[2021-06-26] MEDS ORDERED: Ondansetron PF 4 MG/2 ML Vial IVP PRN (07:58)
[2021-06-26] MEDS ORDERED: HYDROcodone/Acetaminophen 5/325 mg Tablet PO PRN (07:58)
[2021-06-26] MEDS ORDERED: Guaifenesin DM 100-10/5 ML UDCUP PO PRN (07:58)
[2021-06-26] MEDS ORDERED: cefTRIAXone\\ROCEPHIN 2 GM VIAL ONE (08:12)
[2021-06-26] MEDS ORDERED: Sodium Chloride 0.9% 1,000 ML IV SCH (08:15)
[2021-06-26] MEDS ORDERED: Iopamidol 370 76% 100 ML VIAL ONE (09:03)
[2021-06-26 09:41] LABS: #Basophils 0.1 thou/uL (0.0-0.2); #Eosinphils 0.1 thou/uL (0.0-0.7); #Lymphocytes 1.8 thou/uL (1.20-3.40); #Neutrophils 12.9 thou/uL (1.40-6.50); %Basophils 0.6 % (0.0-1.0); %Eosinophils 0.5 % (0.0-10.0); %Lymphocytes 10.6 % (21.0-51.0); %Monocytes 11.8 % (0.0-10.0); %Neutrophils 76.5 % (42.0-75.0); Hemoglobin 9.3 g/dL (14.0-18.0); Mean Corpuscular Hemoglobin 31.7 pg (27.0-31.0); Mean Corpuscular Volume 99.1 fL (78.0-98.0); Mean Platelet Volume 10.1 fL (7.4-10.4); Platelet Count 258 thou/uL (130-400); RBC Distribution Width 21.1 % (11.5-14.5); Red Blood Cell (RBC) Count 2.95 mill/uL (4.70-6.10); White Blood Cell (WBC) Count 16.8 thou/uL (4.8-10.8)
[2021-06-26 10:39] LABS: Lactic Acid 7.9 mmol/L (0.5-2.2)
[2021-06-26] MEDS ORDERED: Acetaminophen 325 MG TAB PO PRN (10:49)
[2021-06-26] MEDS ORDERED: Fentanyl 250 MCG/5 ML VIAL ONE ×2 (10:52→13:57)
[2021-06-26] MEDS ORDERED: Succinylcholine 200 MG/10 ml SYRINGE FS ONE (12:03)
[2021-06-26] MEDS ORDERED: PHENYLEPHRINE-NS 100 MCG/ML 10 ML SYRINGE ONE (12:03)
[2021-06-26 12:18] LABS: Amphetamine Not Detected (NotDetected); Barbiturates Screen Not Detected (NotDetected); Benzodiazepine Screen Not Detected (NotDetected); Cocaine Metabolite Screen Not Detected (NotDetected); Methadone Not Detected (NotDetected); Methamphetamine Not Detected (NotDetected); Opiate Screen Not Detected (NotDetected); Oxycodone Screen Not Detected (NotDetected); Phencyclidine (PCP) Not Detected (NotDetected); THC/Cannabinoid Screen Not Detected (NotDetected); Tricyclic Screen Not Detected (NotDetected)
[2021-06-26] MEDS: cefTRIAXone\\ROCEPHIN 1 GM in Sodium Chloride 0.9% 100 ML IVPB SCH (13:04)
[2021-06-26] MEDS: Pantoprazole 40 MG VIAL IVP SCH ×2 (13:05→21:13)
[2021-06-26] MEDS: methylPREDNISolone Sod Succ 40 MG VIAL IVP SCH ×2 (13:07→21:13)
[2021-06-26] MEDS ORDERED: Midazolam HCl 2 mg/2 ml Vial ONE (13:36)
[2021-06-26] MEDS ORDERED: Ketamine 50 MG/ML (10ML VIAL) ONE (13:57)
[2021-06-26 14:43] LABS: SARS-CoV-2 PCR by NAA Not Detected (NotDetected)
[2021-06-26 15:25] LABS: Actual Bicarbonate (HCO3a) 9.3 mEq/L (22-28); Base Excess (BEa) -21.3 mEq/L (-2.0 to +3.0); CO2 Tension 40.7 mmHg (35.0-45.0); Calcium, Ionized (arterial) 1.08 mmol/L (1.12-1.30); Carboxyhemoglobin (COHb) 0.6 gm% (0.0-3.0); Hemoglobin (Hb) 9.9 g/dL (14.0-18.0); O2 Tension (PaO2), arterial 186.9 mmHg (> 70.0); Potassium - ABG Lab 5.77 mmol/L (3.70-5.30); Puncture Site RRA; pH, Arterial 6.98 (7.35-7.45)
[2021-06-26] MEDS ORDERED: Sodium Bicarb 50 MEQ/50 ML VIAL ONE ×2 (15:26→15:28)
[2021-06-26 15:30] LABS: ALV-art Gradient 118.725 mmHg (0-20)
[2021-06-26] MEDS ORDERED: Sodium Bicarb 50 MEQ/50 ML Abboject 8.4% SYRINGE IVP SCH (15:30)
[2021-06-26] MEDS ORDERED: Sodium Bicarb 50 MEQ/50 ML VIAL IVP SCH (15:45)
[2021-06-26] MEDS: Sodium Chloride 0.9% 1,000 ML IV SCH (18:57)
[2021-06-26 21:23] LABS: Actual Bicarbonate (HCO3a) 12.7 mEq/L (22-28); Base Excess (BEa) -9.8 mEq/L (-2.0 to +3.0); O2 Tension (PaO2), arterial 140.7 mmHg (> 70.0); pH, Arterial 7.39 (7.35-7.45)
[2021-06-26 21:36] LABS: CO2 Tension 21.5 mmHg (35.0-45.0); Puncture Site LRA
[2021-06-26 21:37] LABS: ALV-art Gradient 117.625 mmHg (0-20)
[2021-06-27] MEDS: Sodium Chloride 0.9% 1,000 ML IV SCH (03:01)
[2021-06-27 04:01] LABS: INR-International Normal Ratio 2.5; Prothrombin Time 27.4 sec (12.0-14.7)
[2021-06-27 04:16] LABS: ALT (SGPT) 246 U/L (8-55); AST (SGOT) 487 U/L (5-34); Alkaline Phosphatase 112 U/L (40-110); Anion Gap 20 mmol/L (10-20); BUN (Urea Nitrogen) 51 mg/dL (8.4-25.7); Bilirubin, Total 9.7 mg/dL (0.2-1.2); Calc. Creatinine Clearance 32 mL/min (70-130); Calcium 7.8 mg/dL (7.8-10.44); Carbon Dioxide 15 mmol/L (23-31); Chloride 110 mmol/L (98-107); Globulin 4.2 g/dL (2.4-3.5); Glucose 129 mg/dL (83-110); Potassium 4.4 mmol/L (3.5-5.1); Protein, Total 6.2 g/dL (5.8-8.1); Sodium 141 mmol/L (136-145)
[2021-06-27 04:17] LABS: Anisocytosis SLIGHT = 6-15 cells (100X) (0-5/hpf); Band 14 % (5-11); Hemoglobin 8.7 g/dL (14.0-18.0); Hemoglobin C Crystals SLIGHT (None Seen); Lymphocytes 6 % (21-51); MDiff Complete? YES; Mean Corpuscular HGB CONC 32.1 g/dL (32.0-36.0); Mean Corpuscular Hemoglobin 31.4 pg (27.0-31.0); Mean Corpuscular Volume 97.7 fL (78.0-98.0); Mean Platelet Volume 9.3 fL (7.4-10.4); Monocytes 1 % (0-10); Neutrophil 79 % (42-75); Platelet Count 224 thou/uL (130-400); RBC Distribution Width 20.3 % (11.5-14.5); Red Blood Cell (RBC) Count 2.78 mill/uL (4.70-6.10); Target Cells MODERATE= 6-15 cells (100X) (0-1/hpf)
[2021-06-27] MEDS ORDERED: DISCONTINUE PREVIOUS NARCOTIC PAIN MEDICATIONS AND BENZODIAZEPINES FS SCH (04:30)
[2021-06-27] MEDS ORDERED: Propofol BOLUS 1,000 MG/100 ML VIAL IV PRN (04:30)
[2021-06-27] MEDS ORDERED: FENTANYL CITRATE IV SCH (04:30)
[2021-06-27] MEDS ORDERED: Fentanyl BOLUS 250 ML IVPB PRN (04:30)
[2021-06-27] MEDS ORDERED: NACL IV SCH (04:30)
[2021-06-27] MEDS ORDERED: Morphine 4 MG/ML VIAL SLOW IVP PRN (04:30)
[2021-06-27] MEDS: Lorazepam 2 MG/ML VIAL SLOW IVP PRN ×3 (04:35→09:00)
[2021-06-27] MEDS: methylPREDNISolone Sod Succ 40 MG VIAL IVP SCH ×3 (06:56→21:16)
[2021-06-27 07:59] LABS: Actual Bicarbonate (HCO3a) 19.1 mEq/L (22-28); Base Excess (BEa) -1.7 mEq/L (-2.0 to +3.0); Calcium, Ionized (arterial) 1.06 mmol/L (1.12-1.30); O2 Tension (PaO2), arterial 92.3 mmHg (> 70.0); pH, Arterial 7.52 (7.35-7.45)
[2021-06-27 08:00] LABS: CO2 Tension 23.7 mmHg (35.0-45.0); Puncture Site LRA
[2021-06-27 08:01] LABS: ALV-art Gradient 163.275 mmHg (0-20)
[2021-06-27] MEDS: Propofol 1,000 MG/100 ML VIAL IV PRN ×2 (09:00→19:18)
[2021-06-27] MEDS: Pantoprazole 40 MG VIAL IVP SCH ×2 (09:00→21:16)
[2021-06-27] MEDS: cefTRIAXone\\ROCEPHIN 1 GM in Sodium Chloride 0.9% 100 ML IVPB SCH (09:07)
[2021-06-27] MEDS: Octreotide Acetate 1,250 MCG in Sodium Chloride 0.9% 250 ML 250 ML IVPB SCH (10:58)
[2021-06-27] MEDS ORDERED: FLU VACC QS2021-22(65YR UP)/PF 240 MCG/0.7 ML SYRINGE IM ONE (15:00)
[2021-06-28] MEDS: methylPREDNISolone Sod Succ 40 MG VIAL IVP SCH ×3 (06:10→20:58)
[2021-06-28 07:15] LABS: Actual Bicarbonate (HCO3a) 21.9 mEq/L (22-28); Base Excess (BEa) -0.6 mEq/L (-2.0 to +3.0); CO2 Tension 30.3 mmHg (35.0-45.0); Calcium, Ionized (arterial) 1.07 mmol/L (1.12-1.30); O2 Tension (PaO2), arterial 94.3 mmHg (> 70.0); Potassium - ABG Lab 4.36 mmol/L (3.70-5.30); Puncture Site RBA; pH, Arterial 7.48 (7.35-7.45)
[2021-06-28 07:21] LABS: ALV-art Gradient 153.025 mmHg (0-20)
[2021-06-28 09:03] LABS: Hemoglobin 10.3 g/dL (14.0-18.0); Mean Corpuscular HGB CONC 31.3 g/dL (32.0-36.0); Mean Corpuscular Hemoglobin 30.4 pg (27.0-31.0); Mean Corpuscular Volume 97.1 fL (78.0-98.0); Mean Platelet Volume 9.9 fL (7.4-10.4); Platelet Count 240 thou/uL (130-400); RBC Distribution Width 20.9 % (11.5-14.5); Red Blood Cell (RBC) Count 3.39 mill/uL (4.70-6.10); White Blood Cell (WBC) Count 32.7 thou/uL (4.8-10.8)
[2021-06-28 09:07] LABS: Anion Gap 12 mmol/L (10-20); BUN (Urea Nitrogen) 64 mg/dL (8.4-25.7); Calc. Creatinine Clearance 35 mL/min (70-130); Calcium 7.9 mg/dL (7.8-10.44); Carbon Dioxide 21 mmol/L (23-31); Chloride 115 mmol/L (98-107); Glucose 123 mg/dL (83-110); Potassium 4.9 mmol/L (3.5-5.1); Sodium 143 mmol/L (136-145)
[2021-06-28] MEDS: Pantoprazole 40 MG VIAL IVP SCH ×2 (09:12→20:58)
[2021-06-28] MEDS: cefTRIAXone\\ROCEPHIN 1 GM in Sodium Chloride 0.9% 100 ML IVPB SCH (09:12)
[2021-06-28 09:30] LABS: Band 6 % (5-11); Hypochromia SLIGHT = 6-15 cells (100X) (0-5/hpf); Lymphocytes 8 % (21-51); MDiff Complete? YES; Monocytes 6 % (0-10); Neutrophil 80 % (42-75); Platelet Morphology Comment Appears Adequate; Polychromasia MODERATE = 3-4 cells (100X) (0-2/hpf); Rouleaux Formation SLIGHT = 1-5 cells (100X) (None Seen); Target Cells MODERATE= 6-15 cells (100X) (0-1/hpf)
[2021-06-28 10:37] LABS: Bilirubin 1+ (Negative); Blood, Urine 1+ (Negative); Clarity Clear (Clear); Glucose, Urine (Dipstick) Normal (Negative); Ketone, Urine Negative (Negative); Leukocyte Negative Leu/uL (Negative); Nitrite Negative (Negative); Protein, Urine (Dipstick) Negative (Neg-Trace); Specific Gravity, Urine 1.023 (1.002-1.036); Squamous Epithelial None Seen HPF (0-3); Urobilinogen Normal mg/dL (Less than 2); WBC/HPF 0-3 HPF (0-3)
[2021-06-28 10:38] LABS: Bacteria/HPF 1+ HPF (None Seen)
[2021-06-28 10:39] LABS: Urine Culture Reflex Yes Yes
[2021-06-28] MEDS: Octreotide Acetate 1,250 MCG in Sodium Chloride 0.9% 250 ML 250 ML IVPB SCH (13:26)
[2021-06-28] MEDS: Propofol 1,000 MG/100 ML VIAL IV PRN (16:45)
[2021-06-28 19:36] LABS: Hep C PCR-Quant HCV Not Detected IU/mL (.)
[2021-06-28] MEDS: Lactulose 10 GM/15 ML Oral Solution PR SCH (22:10)
[2021-06-28] MEDS: Albumin 25% 25 GM/100 ML BOT IVPB SCH (22:12)
[2021-06-29] MEDS: Albumin 25% 25 GM/100 ML BOT IVPB SCH ×3 (03:14→15:45)
[2021-06-29] MEDS: methylPREDNISolone Sod Succ 40 MG VIAL IVP SCH ×3 (05:31→21:41)
[2021-06-29 05:46] LABS: Anion Gap 14 mmol/L (10-20); BUN (Urea Nitrogen) 65 mg/dL (8.4-25.7); Calc. Creatinine Clearance 39 mL/min (70-130); Calcium 7.8 mg/dL (7.8-10.44); Carbon Dioxide 19 mmol/L (23-31); Chloride 117 mmol/L (98-107); Glucose 125 mg/dL (83-110); Sodium 146 mmol/L (136-145)
[2021-06-29 05:54] LABS: ALT (SGPT) 187 U/L (8-55); AST (SGOT) 263 U/L (5-34); Albumin 2.8 g/dL (3.4-4.8); Alkaline Phosphatase 99 U/L (40-110); Bilirubin, Direct 6.7 mg/dL (0.1-0.3); Bilirubin, Total 8.4 mg/dL (0.2-1.2); Protein, Total 6.6 g/dL (5.8-8.1)
[2021-06-29 06:35] LABS: Hemoglobin 8.1 g/dL (14.0-18.0); Mean Corpuscular HGB CONC 32.4 g/dL (32.0-36.0); Mean Corpuscular Volume 95.7 fL (78.0-98.0); Mean Platelet Volume 9.8 fL (7.4-10.4); Platelet Count 208 thou/uL (130-400); RBC Distribution Width 20.9 % (11.5-14.5); White Blood Cell (WBC) Count 20.1 thou/uL (4.8-10.8)
[2021-06-29 07:25] LABS: #Lymphocytes 1.2 thou/uL (1.20-3.40); #Monocytes 1.4 thou/uL (0.11-0.59); #Neutrophils 17.5 thou/uL (1.40-6.50); %Basophils 0.1 % (0.0-1.0); %Lymphocytes 5.7 % (21.0-51.0); %Monocytes 6.9 % (0.0-10.0); %Neutrophils 87.2 % (42.0-75.0); Band 10 % (5-11); Lymphocytes 2 % (21-51); MDiff Complete? YES; Monocytes 2 % (0-10); Neutrophil 86 % (42-75); Platelet Morphology Comment Appears Adequate; Polychromasia SLIGHT = 2-3 cells (100X) (0-2/hpf); Target Cells MODERATE= 6-15 cells (100X) (0-1/hpf)
[2021-06-29 07:30] LABS: Actual Bicarbonate (HCO3a) 22.2 mEq/L (22-28); Base Excess (BEa) -0.9 mEq/L (-2.0 to +3.0); CO2 Tension 30.1 mmHg (35.0-45.0); Calcium, Ionized (arterial) 1.06 mmol/L (1.12-1.30); Carboxyhemoglobin (COHb) 0.6 gm% (0.0-3.0); Hemoglobin (Hb) 7.6 g/dL (14.0-18.0); O2 Tension (PaO2), arterial 106.9 mmHg (> 70.0); Potassium - ABG Lab 3.92 mmol/L (3.70-5.30); Puncture Site RBA; pH, Arterial 7.49 (7.35-7.45)
[2021-06-29 07:37] LABS: ALV-art Gradient 140.675 mmHg (0-20)
[2021-06-29] MEDS: Pantoprazole 40 MG VIAL IVP SCH ×2 (08:36→21:41)
[2021-06-29] MEDS: cefTRIAXone\\ROCEPHIN 1 GM in Sodium Chloride 0.9% 100 ML IVPB SCH (08:36)
[2021-06-29] MEDS ORDERED: Dexmedetomidine In 0.9 % NaCl 100 ML IVPB SCH (09:00)
[2021-06-29 10:28] LABS: Hemoglobin 7.9 g/dL (14.0-18.0); Platelet Count 195 thou/uL (130-400)
[2021-06-29] MEDS: Lactulose 10 GM/15 ML Oral Solution PR SCH (11:40)
[2021-06-29 14:24] VITALS: BP 117/56
[2021-06-30] MEDS: methylPREDNISolone Sod Succ 40 MG VIAL IVP SCH (05:44)
[2021-06-30 05:47] LABS: ALT (SGPT) 117 U/L (8-55); AST (SGOT) 139 U/L (5-34); Albumin 2.4 g/dL (3.4-4.8); Alkaline Phosphatase 68 U/L (40-110); Bilirubin, Direct 5.2 mg/dL (0.1-0.3); Bilirubin, Total 6.5 mg/dL (0.2-1.2); Protein, Total 5.2 g/dL (5.8-8.1)
[2021-06-30 07:27] VITALS: BMI 24.0
[2021-06-30] MEDS: cefTRIAXone\\ROCEPHIN 1 GM in Sodium Chloride 0.9% 100 ML IVPB SCH (09:38)
[2021-06-30] MEDS: Pantoprazole 40 MG VIAL IVP SCH (09:39)
[2021-06-30 09:50] VITALS: TEMP 98.7
[2021-06-30] MEDS ORDERED: Scopolamine 1.5 mg/72 hour Patch TD SCH (10:15)
[2021-06-30] MEDS: Lorazepam 2 MG/ML VIAL SLOW IVP PRN (11:19)
== END 2021-06-30 11:58 | disposition hospice, inpatient (51) | DRG 423 ==
LOC: SUATTDRO 04:57 → ERS 04:57 → CCU 07:58
PROVIDERS: ADMIT Hospitalist; ATTEND Internal Medicine
PROC: 0D968ZZ Drainage of Stomach, Via Natural or Artificial Opening Endoscopic (ICD-10-PCS; principal; 2021-06-26)
PROC: 06L38CZ Occlusion of Esophageal Vein with Extraluminal Device, Via Natural or Artificial Opening Endoscopic (ICD-10-PCS; 2021-06-26)
PROC: 5A1945Z Respiratory Ventilation, 24-96 Consecutive Hours (ICD-10-PCS; 2021-06-26)
PROC: 30233K1 Transfusion of Nonautologous Frozen Plasma into Peripheral Vein, Percutaneous Approach (ICD-10-PCS; 2021-06-26)
PROC: 30233N1 Transfusion of Nonautologous Red Blood Cells into Peripheral Vein, Percutaneous Approach (ICD-10-PCS; 2021-06-26)
DX: K74.69 Other cirrhosis of liver (principal); I85.11 Secondary esophageal varices with bleeding; K72.00 Acute and subacute hepatic failure without coma; R57.8 Other shock; J96.00 Acute respiratory failure, unspecified whether with hypoxia or hypercapnia; E87.2 Acidosis; R18.8 Other ascites; D62 Acute posthemorrhagic anemia; N17.9 Acute kidney failure, unspecified; Z51.5 Encounter for palliative care; Z66 Do not resuscitate; Z20.822 Contact with and (suspected) exposure to COVID-19; E78.5 Hyperlipidemia, unspecified; E78.00 Pure hypercholesterolemia, unspecified; I10 Essential (primary) hypertension; K80.20 Calculus of gallbladder without cholecystitis without obstruction; K75.4 Autoimmune hepatitis; N40.0 Benign prostatic hyperplasia without lower urinary tract symptoms; K44.9 Diaphragmatic hernia without obstruction or gangrene; G40.909 Epilepsy, unspecified, not intractable, without status epilepticus; G93.89 Other specified disorders of brain; K31.819 Angiodysplasia of stomach and duodenum without bleeding; Z98.890 Other specified postprocedural states; Z79.899 Other long term (current) drug therapy; I69.920 Aphasia following unspecified cerebrovascular disease; Z91.14 Patient's other noncompliance with medication regimen; Z78.1 Physical restraint status
CPT/HCPCS: 36415; 36416; 36430; 36600; 51701; 70450; 70551; 71045; 74177; 76705; 80048; 80053; 80074; 80076; 80143; 80306; 80307; 81001; 81003; 82105; 82140; 82805; 83605; 83690; 85025; 85610; 85730; 86850; 86900; 86901; 87040; 87086; 87522; 94002; 94003; 95712; 95819; 95957; 96365; 96375; C9113; J0696; J2060; J2270; J2354; J2405; J2704; J2920; J3010; J3490; J7050; P9016; P9047; P9059; Q9967; U0003; U0005

== ENCOUNTER 2021-06-30 12:13 | Inpatient (IN) | payer OTHER ==
[2021-06-30] MEDS ORDERED: Morphine 4 MG/ML VIAL SLOW IVP PRN (12:24)
[2021-06-30] MEDS ORDERED: Lorazepam 2 MG/ML VIAL SLOW IVP PRN (12:25)
[2021-06-30] MEDS ORDERED: Scopolamine 1.5 mg/72 hour Patch TOP SCH (12:30)
[2021-06-30] MEDS ORDERED: Ondansetron PF 4 MG/2 ML Vial IVP PRN (12:30)
[2021-06-30] MEDS: Lorazepam 2 MG/ML VIAL SLOW IVP SCH ×3 (14:52→20:34)
[2021-06-30] MEDS: Morphine 4 MG/ML VIAL SLOW IVP SCH ×2 (14:53→17:34)
[2021-06-30] MEDS: diphenhydrAMINE 50 MG/ML VIAL IVP PRN (20:37)
[2021-07-01] MEDS: Lorazepam 2 MG/ML VIAL SLOW IVP SCH ×6 (01:02→20:13)
[2021-07-01] MEDS: Morphine 4 MG/ML VIAL SLOW IVP SCH ×4 (01:02→18:17)
[2021-07-01] MEDS: diphenhydrAMINE 50 MG/ML VIAL IVP PRN (04:48)
[2021-07-01] MEDS: Morphine 4 MG/ML VIAL SLOW IVP PRN ×3 (10:00→20:12)
[2021-07-01] MEDS: Lorazepam 2 MG/ML VIAL SLOW IVP PRN ×2 (10:01→18:17)
[2021-07-01] MEDS ORDERED: Atropine Sulfate 1% Ophth Soln 5 ml Bottle PO PRN (11:31)
[2021-07-01] MEDS ORDERED: Atropine Sulfate 1% Ophth Soln 5 ml Bottle PO SCH (11:45)
[2021-07-02] MEDS: Lorazepam 2 MG/ML VIAL SLOW IVP SCH ×6 (00:48→20:44)
[2021-07-02] MEDS: Morphine 4 MG/ML VIAL SLOW IVP SCH ×5 (00:48→17:59)
[2021-07-02 07:31] VITALS: BP 108/62; TEMP 97.5
[2021-07-02] MEDS: Morphine 4 MG/ML VIAL SLOW IVP PRN ×3 (10:29→16:39)
== END 2021-07-02 19:30 | disposition expired | DRG 951 ==
LOC: CCU 12:13 → MSONC 15:21
PROVIDERS: ADMIT Family Medicine; ATTEND Family Medicine
DX: Z51.5 Encounter for palliative care (principal); J96.00 Acute respiratory failure, unspecified whether with hypoxia or hypercapnia; I85.01 Esophageal varices with bleeding; I63.9 Cerebral infarction, unspecified; I61.9 Nontraumatic intracerebral hemorrhage, unspecified; D62 Acute posthemorrhagic anemia; K92.0 Hematemesis; D68.9 Coagulation defect, unspecified; E87.2 Acidosis; R18.8 Other ascites; K75.4 Autoimmune hepatitis; K80.20 Calculus of gallbladder without cholecystitis without obstruction; K74.60 Unspecified cirrhosis of liver; G40.909 Epilepsy, unspecified, not intractable, without status epilepticus; B19.20 Unspecified viral hepatitis C without hepatic coma; Z86.73 Personal history of transient ischemic attack (TIA), and cerebral infarction without residual deficits
CPT/HCPCS: J1200; J2060; J2270